=== PATIENT | female | born 1970 | race Caucasian/White ===

== ENCOUNTER 2019-10-14 10:06 | Emergency (ER) | payer BC, SELFPAY ==
[2019-10-14 10:17] VITALS: BP 118/64; PULSE 97; RESP 16; TEMP 36.7; O2SAT 99
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
== END 2019-10-14 10:47 | disposition home or self-care (01) ==
PROVIDERS: Emergency Provider Nurse Practitioner Family; PCP Family Medicine
DX: S51.851A Open bite of right forearm, initial encounter (principal); W54.0XXA Bitten by dog, initial encounter; E78.00 Pure hypercholesterolemia, unspecified; I10 Essential (primary) hypertension; K21.9 Gastro-esophageal reflux disease without esophagitis; E11.40 Type 2 diabetes mellitus with diabetic neuropathy, unspecified; E03.9 Hypothyroidism, unspecified; F31.9 Bipolar disorder, unspecified
CPT/HCPCS: 99213; G0463

== ENCOUNTER 2019-12-13 10:56 | Emergency (ER) | payer BC, SELFPAY ==
[2019-12-13 11:01] VITALS: BP 138/71; PULSE 109; RESP 18; TEMP 36.8; O2SAT 100
--- NOTE | 2019-12-13 11:17 | ED.DENTAL ---
HPI - Dental/Oral General Chief complaint: Dental/Oral Stated complaint: bottom lip swollen/tooth pain Time Seen by Provider: 12/13/19 11:17 Source: patient Mode of arrival: ambulatory Limitations: no limitations History of Present Illness HPI Narrative: Joanie Barrett is a 49 yo female with a PMH of high cholesterol diabetes, HTN, bipolar disorder, GERD, who comes to express care with chronic lower right molar and pain. Tooth has been fractured for a while but the pain started yesterday evening in the lower right molar. Has taken Percocet for pain. Related Data Home Medications Medication Instructions Recorded Confirmed amlodipine 5 mg PO BID 10/14/19 12/13/19 atorvastatin 40 mg PO DAILY 10/14/19 12/13/19 gabapentin 300 mg PO TID 10/14/19 12/13/19 glipizide 10 mg PO BID 10/14/19 12/13/19 lamotrigine 150 mg PO BID 10/14/19 12/13/19 levothyroxine 88 mcg PO DAILY 10/14/19 12/13/19 lisinopril 40 mg PO DAILY 10/14/19 10/14/19 omeprazole 40 mg PO DAILY 10/14/19 10/14/19 oxycodone-acetaminophen 1 tablet PO DAILY PRN 10/14/19 10/14/19 tizanidine 4 mg PO BID 10/14/19 10/14/19 venlafaxine 225 mg PO DAILY 10/14/19 10/14/19 Allergies Allergy/AdvReac Type Severity Reaction Status Date / Time clonazepam [From Klonopin] Allergy Anxiety Verified 12/13/19 11:18 prednisone Allergy Anxiety Verified 12/13/19 11:18 Penicillins AdvReac Itching Verified 12/13/19 11:18 Review of Systems Review of Systems: Narrative: CONSTITUTIONAL: Denies fever, chills, sweats. EYES: Denies visual changes, redness, discharge. ENT: Denies rhinorrhea, congestion, sore throat, otalgia. Right lower molar fractured with swelling of the jaw CARDIOVASCULAR: Denies chest pain, palpitations, edema. RESPIRATORY: Denies dyspnea, wheezing, cough GASTROINTESTINAL: Denies abdominal pain, nausea, vomiting, diarrhea. GENITOURINARY: Denies dysuria, hematuria, abnormal discharge SKIN: Denies rash or itching. NEUROLOGIC: Denies numbness, or focal weakness. PSYCHIATRIC: Denies anxiety or depression. [facility] Past Medical History Medical History Diabetes GERD (gastroesophageal reflux disease) High cholesterol HTN (hypertension) Family History Family History Other Diabetes mellitus Social History Social History Smoking status: Former smoker Comments At time of signature, I agree with nursing past medical, surgical, social and family history. There is no relevant family history pertinent to the presenting complaint. Exam Narrative: Exam Narrative: GENERAL: This is a well-nourished, well-developed patient, i with moderate right-sided tenderness HEAD: normocephalic, atraumatic. EYES:Sclera clear/white. Vision is grossly intact. EARS: External ears normal, NOSE: External nose normal without nasal discharge, nares without redness, no rhinorrhea. THROAT: Mucous membranes moist, posterior pharynx mild erythema, poor dentition, multiple fractured teeth, right lower molar fracture and swelling of gum NECK: Neck supple, non-tender CARDIOVASCULAR: Regular rate and rhythm without murmurs, gallops, or rubs. RESPIRATORY: Clear to auscultation. Breath sounds equal bilaterally. No wheezes, rales, or rhonchi. GASTROINTESTINAL: Abdomen soft, SKIN: warm, intact with no suspicious lesions or rash, good texture and turgor. NEURO: awake, alert, and oriented to person, place and time. There were no obvious focal neurologic abnormalities. Steady gait EXTREMITIES: Normal range of motion. BACK: Nontender without deformity Course Course Emergency Course: Dental pain right lower jaw, broken l right tooth Patient currently on Percocet for other medical problems. Started on penicillin lidocaine, and recommended use of ibuprofen-care with ibuprofen due to having hypertension Follow-up with a dentist they recommen
== END 2019-12-13 11:50 | disposition home or self-care (01) ==
PROVIDERS: Emergency Provider Nurse Practitioner; PCP Family Medicine
DX: K04.7 Periapical abscess without sinus (principal); Z87.891 Personal history of nicotine dependence; E11.9 Type 2 diabetes mellitus without complications; K21.9 Gastro-esophageal reflux disease without esophagitis; E78.00 Pure hypercholesterolemia, unspecified; I10 Essential (primary) hypertension; F31.9 Bipolar disorder, unspecified
CPT/HCPCS: 99213; G0463

== ENCOUNTER 2020-08-27 11:24 | Emergency (ER) | payer OTHER, SELFPAY ==
[2020-08-27 11:30] VITALS: BP 130/68; PULSE 104; RESP 18; TEMP 36.1; O2SAT 100
[2020-08-27 11:45] VITALS: BP 130/68; PULSE 104; RESP 18; TEMP 36.1; O2SAT 100
--- NOTE | 2020-08-27 11:45 | ED.FEMALEGU ---
HPI - Female Genitourinary General Chief complaint: Urogenital-Female Stated complaint: Possible UTI Time Seen by Provider: 08/27/20 11:40 Source: patient, RN notes reviewed and old records reviewed Mode of arrival: ambulatory Limitations: no limitations History of Present Illness HPI Narrative: 49 year old female who presents to [facility] care with complaints of 3 day history of urinary tract symptoms with pain and burning with urination, frequency of urination and urgency Patient voices history of UTI's in the past, has been taking AZO for her symptoms. She reports no increase in her back pain, does have history of chronic back pain. Patient does admit to some suprapubic tenderness, patient states no known fevers, chills or sweats, denies any nausea or vomiting. Patient denies any vaginal discharge or perineal itching. Patient is diabetic and states that it is not in as good control as was previously, she does have 3+ glucose in her urine. MD elicited complaint: dysuria and other (burning, frequency and urgency) Pertinent past history: recurrent UTIs Urinary symptoms: Dysuria, Urgency and Frequency Related Data Home Medications Medication Instructions Recorded Confirmed amlodipine 5 mg PO BID 10/14/19 08/27/20 atorvastatin 40 mg PO DAILY 10/14/19 08/27/20 gabapentin 300 mg PO TID 10/14/19 08/27/20 glipizide 10 mg PO BID 10/14/19 08/27/20 lamotrigine 150 mg PO BID 10/14/19 08/27/20 levothyroxine 100 mcg PO DAILY 10/14/19 08/27/20 lisinopril 40 mg PO DAILY 10/14/19 08/27/20 omeprazole 40 mg PO DAILY 10/14/19 08/27/20 oxycodone-acetaminophen 1 tablet PO DAILY PRN 10/14/19 08/27/20 tizanidine 4 mg PO BID 10/14/19 08/27/20 venlafaxine 225 mg PO DAILY 10/14/19 08/27/20 insulin glargine [Lantus Solostar 30 unit SUBCUT QAM 08/27/20 08/27/20 U-100 Insulin] insulin lispro [Humalog Pen] 5 unit SUBCUT QAM 08/27/20 08/27/20 Allergies Allergy/AdvReac Type Severity Reaction Status Date / Time clonazepam [From onopin] Allergy Anxiety Verified 08/27/20 11:41 prednisone Allergy Anxiety Verified 08/27/20 11:41 Penicillins AdvReac Itching Verified 08/27/20 11:41 Review of Systems Review of Systems: Narrative: CONSTITUTIONAL: Denies fever, chills, or sweats. EYES: Denies visual changes, redness, or discharge. ENT: Denies rhinorrhea, congestion, sore throat, or otalgia. CARDIOVASCULAR: Denies chest pain, palpitations, or edema. RESPIRATORY: Denies cough or dyspnea. GASTROINTESTINAL: Denies abdominal pain, nausea, vomiting, or diarrhea. GENITOURINARY: Positive dysuria or hematuria. SKIN: Denies rash or itching. MUSCULOSKELETAL: Positive chronic back pain, joint pain, or myalgia. NEUROLOGIC: Denies headache, numbness, or weakness. PSYCHIATRIC: Denies anxiety or depression. All systems reviewed & are unremarkable except as noted in HPI and below PMFSH Past Medical History Medical History (Updated 08/27/20 @ 18:47 by Nesha Dent NP) Bipolar 1 disorder Diabetes GERD (gastroesophageal reflux disease) High cholesterol HTN (hypertension) Pancreatitis Surgical History Surgical History (Updated 08/27/20 @ 18:46 by Nesha Dent NP) H/O Spinal surgery X2 History of cholecystectomy Family History Family History (Updated 08/27/20 @ 18:49 by Nesha Dent NP) Other Bipolar 1 disorder Diabetes mellitus Hypertension Social History Social History (Updated 08/27/20 @ 12:09 by Nesha Dent NP) Smoking status: Former smoker Tobacco type: cigarettes Additional smoking assessment comments: quit 3-4 years ago 2016 Alcohol intake: current Alcohol use details: rare social Substance use type: marijuana and painkillers Last use: on daily pain medication for chronic back and has medical marijuana card Living arrangements: with family Gender identity (if verbalized by the patient): Female Comments At time of signature, agree with nursing past medical, surgical, social and family history. There
== END 2020-08-27 12:16 | disposition home or self-care (01) ==
PROVIDERS: Emergency Provider Registered Nurse; PCP Family Medicine
DX: N39.0 Urinary tract infection, site not specified (principal); Z87.891 Personal history of nicotine dependence; E11.9 Type 2 diabetes mellitus without complications; K21.9 Gastro-esophageal reflux disease without esophagitis; E78.00 Pure hypercholesterolemia, unspecified; F31.9 Bipolar disorder, unspecified
CPT/HCPCS: 81003; 87077; 87086; 87088; 87186; 99213; G0463

== ENCOUNTER 2021-06-30 16:21 | Emergency (ER) | payer OTHER, SELFPAY ==
--- NOTE | 2021-06-30 16:26 | ED.FEMALEGU ---
HPI - Female Genitourinary General Chief complaint: Urogenital-Female Stated complaint: Urinary Problem Time Seen by Provider: 06/30/21 16:26 Source: patient and RN notes reviewed History of Present Illness HPI Narrative: Patient is a 50-year-old female who presents the urgent care with complaints of a possible UTI. Patient states that 2 days ago she started having suprapubic pressure/cramping, decreased urinary output and dysuria. Patient denies of any fever, nausea or vomiting. Patient has been taking Azo since this morning. No other acute complaints. No acute distress noted. Patient aware of the plan of care. Some parts of this dictation were generated by voice recognition software and may contain typographical and/or grammatical inaccuracies. Related Data Home Medications Medication Instructions Recorded Confirmed amlodipine 5 mg PO BID 10/14/19 06/30/21 atorvastatin 40 mg PO DAILY 10/14/19 06/30/21 gabapentin 300 mg PO TID 10/14/19 06/30/21 lamotrigine 150 mg PO BID 10/14/19 06/30/21 levothyroxine 100 mcg PO DAILY 10/14/19 06/30/21 lisinopril 40 mg PO DAILY 10/14/19 06/30/21 omeprazole 40 mg PO DAILY 10/14/19 06/30/21 oxycodone-acetaminophen 1 tablet PO DAILY PRN 10/14/19 06/30/21 tizanidine 4 mg PO BID 10/14/19 06/30/21 venlafaxine 225 mg PO DAILY 10/14/19 06/30/21 insulin glargine [Lantus Solostar 30 unit SUBCUT [facility] 08/27/20 06/30/21 U-100 Insulin] pioglitazone 45 mg PO DAILY 06/30/21 06/30/21 Allergies Allergy/AdvReac Type Severity Reaction Status Date / Time clonazepam [From Klonopin] Allergy Anxiety Verified 06/30/21 16:33 prednisone Allergy Anxiety Verified 06/30/21 16:33 Penicillins AdvReac Itching Verified 06/30/21 16:33 Review of Systems Review of Systems: CONSTITUTIONAL: Denies fever, chills, or sweats. EYES: Denies visual changes, redness, or discharge. ENT: Denies rhinorrhea, congestion, sore throat, or otalgia. CARDIOVASCULAR: Denies chest pain, palpitations, or edema. RESPIRATORY: Denies cough or dyspnea. GASTROINTESTINAL: Denies abdominal pain, nausea, vomiting, or diarrhea. GENITOURINARY: Reports of dysuria, frequency, dysuria and decreased urinary output SKIN: Denies rash or itching. MUSCULOSKELETAL: Denies back pain, joint pain, or myalgia. NEUROLOGIC: Denies headache, numbness, or weakness. All other systems reviewed are negative, except as documented in HPI. [facility] Past Medical History Medical History (Updated 06/30/21 @ 16:46 by SHON Bonds) Bipolar 1 disorder Diabetes GERD (gastroesophageal reflux disease) High cholesterol HTN (hypertension) Pancreatitis Surgical History Surgical History (Updated 08/27/20 @ 18:46 by Nesha Dent NP) H/O Spinal surgery X2 History of cholecystectomy Family History Family History (Updated 08/27/20 @ 18:49 by Nesha Dent NP) Other Bipolar 1 disorder Diabetes mellitus Hypertension Social History Social History (Updated 08/27/20 @ 12:09 by Nesha Dent NP) Smoking status: Former smoker Tobacco type: cigarettes Additional smoking assessment comments: quit 3-4 years ago 2016 Alcohol intake: current Alcohol use details: rare social Substance use type: marijuana and painkillers Last use: on daily pain medication for chronic back and has medical marijuana card Gender identity (if verbalized by the patient): Female Comments At the time of my signature, I reviewed and agree with the nursing past medical, surgical, social, and family history. There is no relevant family history pertinent to the patient complaint. Exam Narrative: GENERAL: This is a well-nourished, well-developed patient, in no apparent distress. HEAD: normocephalic, atraumatic. EYES: PERRL. Sclera clear/white. Vision is grossly intact. EARS: External ears normal NOSE: External nose normal with no obvious nasal discharge, nares without redness, no rhinorrhea. THROAT: Mucous membranes moist NECK: Neck supple CARDIO
[2021-06-30 16:29] VITALS: BP 148/80; PULSE 102; RESP 16; TEMP 36.7; O2SAT 97
== END 2021-06-30 16:50 | disposition home or self-care (01) ==
PROVIDERS: Emergency Provider Nurse Practitioner Family
DX: N39.0 Urinary tract infection, site not specified (principal); Z87.891 Personal history of nicotine dependence; F12.90 Cannabis use, unspecified, uncomplicated; Z79.891 Long term (current) use of opiate analgesic; E11.9 Type 2 diabetes mellitus without complications; K21.9 Gastro-esophageal reflux disease without esophagitis; E78.00 Pure hypercholesterolemia, unspecified; I10 Essential (primary) hypertension; F31.9 Bipolar disorder, unspecified
CPT/HCPCS: 81003; 87077; 87086; 87186; 99213; G0463

== ENCOUNTER 2024-11-10 12:57 | Emergency (ER) | payer OTHER, SELFPAY ==
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
[2024-11-10 13:12] VITALS: BP 139/66; PULSE 104; RESP 18; TEMP 36.8; O2SAT 98
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
--- OUTSIDE RECORDS SUMMARY | 2024-11-10 15:35 | XMS_ITS | Encounter Summary ---
Author Organization [facility] Address [address] [facility] [place] [address] Care Team Providers Care Assistant To The Dean Name Role Phone Kobi Lake DO Unavailable [phone] Darren Ledesma MD Primary Care Provider [phone] Encounter Details Date Type Department Care Team (Late st Contact Info) Description 10/31/2014 [facility] Outpatient Visit [facility] Orthopedics - Radiology [address] [place] [address] Kobi Lake, DO [address] [address] Social History Tobacco Use Types Packs/Day Years Used Date Smoking Tobacco: Every Day Cigarettes 1 25 Alcohol Use Standard Drinks/Week Comments Yes 0 (1 standard drink = 0.6 oz pur e alcohol) Comments No Sex and Gender Information Value Date Recorded Sex Assigned at Female 08/11/2023 3:56 PM CDT Legal Sex Female 8:45 AM CDT Gender Identity Not on file Sexual Orientation Not on file documented as of this encounter Functional Status * Is person deaf or have serious hearing difficulty? Answer Date of Assessment Author No 10/20/2013 1:00 AM Robles Ledezma RN * Is person blind or have serious difficulty seeing? Answer Date of Assessment Author No 10/20/2013 1:00 AM Robles Ledezma RN * Does person have serious difficulty walking/climbing stairs? Answer Date of Assessment Author No 10/20/2013 1:00 AM CDT Robles Figueroa RN * Does person have difficulty dressing/bathing? Answer Date of Assessment Author No 10/20/2013 1:00 AM Robles Ledezma RN * Does person have difficulty doing errands alone? Answer Date of Assessment Author No 10/20/2013 1:00 AM Robles Ledezma RN documented as of this encounter Mental Status * Does person have difficulty concentrating/remembering/making decisions? Answer Entry Date Author No 10/20/2013 1:00 AM Robles Ledezma RN documented in this encounter Plan of Treatment Not on file documented as of this encounter Visit Diagnoses Not on filedocumented in this encounter Additional Health Concerns Infection Onset Date Last Indicated Resolved Time MRSA Comment:2 negative screens 04/23/18 and 05/10/18-isolation removed 2013 12/25/2017 05/12/2018 8:10 AM CDT documented as of this encounter Care Teams Assistant To The Dean Relationship Specialty Start Date End Date Darren Ledesma MD PCP - General Family Medicine 10/31/14 Kobi Lake DO Orthopedic Surgery 02/17/14 documented as of this encounter
--- OUTSIDE RECORDS SUMMARY | 2024-11-10 15:35 | XMS_ITS | Encounter Summary ---
Author Organization [facility] Address [address] [facility] [place] [address] Care Team Providers Care Production Pattern Maker Name Role Phone Kobi Lake DO Unavailable [phone] Darren Ledesma MD Primary Care Provider [phone] Encounter Details Date Type Department Care Team (Late st Contact Info) Description 11/26/2017 [facility] Outpatient Visit [facility] Orthopedics - Radiology [address] [place] [address] [place] [address] Document, Scanned Social History Tobacco Use Types Packs/Day Years Used Date Smoking Tobacco: Former Cigarettes 1 25 0 05/16/2017 - 05/17/2017 Alcohol Use Standard Drinks/Week Comments Yes 0 [...] difficulty? Answer Date of Assessment Author No 11/13/2017 9:56 AM Olivia Grier APRN-CNP * Is person blind or have serious difficulty seeing? Answer Date of Assessment Author No 11/13/2017 9:56 AM Olivia Grier APRN-CNP * Does person have serious difficulty walking/climbing stairs? Answer Date of Assessment Author No 11/13/2017 9:56 AM Olivia Grier APRN-CNP * Does person have difficulty dressing/bathing? Answer Date of Assessment Author No 11/13/2017 9:56 AM CDT Olivia Gardiner APRN-JAXON * Does person have difficulty doing errands alone? Answer Date of Assessment Author No 11/13/2017 9:56 AM CDT Olivia Gardiner APRN-JAXON documented as of this encounter Mental Status * Does person have difficulty concentrating/remembering/making decisions? Answer Entry Date Author No 11/13/2017 9:56 AM CDT Olivia Gardiner APRN-JAXON documented in this encounter Plan of Treatment Not on file documented as of this encounter Visit Diagnoses Not on filedocumented in this encounter Additional Health Concerns Infection Onset Date Last Indicated Resolved Time MRSA Comment:2 negative screens 04/23/18 and 05/10/18-isolation removed 2013 12/25/2017 05/12/2018 8:10 AM CDT documented as of this encounter Care Teams Production Pattern Maker Relationship Specialty Start Date End Date Darren Ledesma MD PCP - General Family Medicine 10/31/14 Kobi Lake DO Orthopedic Surgery 02/17/14 documented as of this encounter
--- OUTSIDE RECORDS SUMMARY | 2024-11-10 15:35 | XMS_ITS | Encounter Summary ---
Author Organization [facility] Address [address] [place] [address] Care Team Providers Care Bag Bailer Name Role Phone Kobi Lake DO Unavailable [phone] Darren Ledesma MD Primary Care Provider [phone] Encounter Details Date Type Department Care Team (Late st Contact Info) Description 12/25/2017 [facility] Outpatient Visit [facility] Orthopedics - Radiology [address] [place] [address] Kobi Lake, DO [address] [address] Social History Tobacco Use Types [...] Author No 11/13/2017 9:56 AM CDT Olivia Gardiner, STARCHMAKER-AGENT SPA DESK * Does person have difficulty dressing/bathing? Answer Date of Assessment Author No 11/13/2017 9:56 AM CDT Olivia Gardiner, STARCHMAKER-AGENT SPA DESK * Does person have difficulty doing errands alone? Answer Date of Assessment Author No 11/13/2017 9:56 AM CDT Olivia Gardiner, STARCHMAKER-AGENT SPA DESK documented as of this encounter Mental Status * Does person have difficulty concentrating/remembering/making decisions? Answer Entry Date Author No 11/13/2017 9:56 AM CDT Olivia Gardiner, STARCHMAKER-AGENT SPA DESK documented in this encounter Plan of Treatment Not on file documented as of this encounter Visit Diagnoses Not on filedocumented in this encounter Additional Health Concerns Infection Onset Date Last Indicated Resolved Time MRSA Comment:2 negative screens 04/23/18 and 05/10/18-isolation removed 2013 12/25/2017 05/12/2018 8:10 AM CDT documented as of this encounter Care Teams Bag Bailer Relationship Specialty Start Date End Date Darren Ledesma MD PCP - General Family Medicine 10/31/14 Kobi Lake DO Orthopedic Surgery 02/17/14 documented as of this encounter
--- OUTSIDE RECORDS SUMMARY | 2024-11-10 15:35 | XMS_ITS | Encounter Summary ---
Author Organization [facility] Address [address] [facility] [place] [address] Care Team Providers Care Train Reservation Clerk Name Role Phone Kobi Lake DO Unavailable [phone] Darren Ledesma MD Primary Care Provider [phone] Encounter Details Date Type Department Care Team (Late st Contact Info) Description 11/26/2017 [facility] Outpatient Visit [facility] Orthopedics - Radiology [address] [place] [address] [place] [address] Document, Scanned Social History Tobacco Use Types [...] documented as of this encounter Care Teams Train Reservation Clerk Relationship Specialty Start Date End Date Darren Ledesma MD PCP - General Family Medicine 10/31/14 Kobi Lake DO Orthopedic Surgery 02/17/14 documented as of this encounter
--- OUTSIDE RECORDS SUMMARY | 2024-11-10 15:35 | XMS_ITS | Encounter Summary ---
Author Organization [facility] Address [address] [facility] [place] [address] Care Team Providers Care Lead Warehouse Associate Name Role Phone Kobi Lake DO Unavailable [phone] Darren Ledesma MD Primary Care Provider [phone] Encounter Details Date Type Department Care Team (Late st Contact Info) Description 04/23/2018 [facility] Outpatient Visit [facility] Orthopedics - Radiology [address] [place] [address] [place] [address] Document, Scanned Social History Tobacco Use Types Packs/Day Years Used Date Smoking Tobacco: Former Cigarettes 1 25 0 05/16/2017 - 05/17/2017 Smokeless Tobacco: Former Alcohol Use Standard Drinks/Week Comments Yes 0 (1 standard drink = 0.6 oz pur e alcohol) rare Comments No Sex and Gender Information Value Date Recorded Sex Assigned at Female 08/11/2023 3:56 PM CDT Legal Sex Female 8:45 AM CDT Gender Identity Not on file Sexual Orientation Not on file documented as of this encounter Functional Status * Is person deaf or have serious hearing difficulty? Answer Date of Assessment Author No 01/11/2018 9:13 PM Nesha Scott RN * Is person blind or have serious difficulty seeing? Answer Date of Assessment Author No 01/11/2018 9:13 PM Nesha Scott RN * Does person have serious difficulty walking/climbing stairs? Answer Date of Assessment Author Yes 01/11/2018 9:13 PM Nesha Scott RN * Does person have difficulty dressing/bathing? Answer Date of Assessment Author No 01/11/2018 9:13 PM Nesha Scott RN * Does person have difficulty doing errands alone? Answer Date of Assessment Author Yes 01/11/2018 9:13 PM Nesha Scott RN documented as of this encounter Mental Status * Does person have difficulty concentrating/remembering/making decisions? Answer Entry Date Author No 01/11/2018 9:13 PM Nesha Scott RN documented in this encounter Plan of Treatment Not on file documented as of this encounter Visit Diagnoses Not on filedocumented in this encounter Additional Health Concerns Infection Onset Date Last Indicated Resolved Time MRSA Comment:2 negative screens 04/23/18 and 05/10/18-isolation removed 2013 12/25/2017 05/12/2018 8:10 AM CDT documented as of this encounter Care Teams Lead Warehouse Associate Relationship Specialty Start Date End Date Darren Ledesma MD PCP - General Family Medicine 10/31/14 Kobi Lake DO Orthopedic Surgery 02/17/14 documented as of this encounter
--- OUTSIDE RECORDS SUMMARY | 2024-11-10 15:35 | XMS_ITS | Clinical Summary ---
Author Organization [facility] Address [address] [place] [address] Phone Care Team Providers Care Combat Control Name Role Phone Darren Ledesma MD Primary Care Provider [phone] Allergies Active Allergy Reactions Criticality Noted Date Comments Penicillins Itching Low 04/29/2015 Prednisone Itching Low 04/29/2015 Medications oxyCODONE-acetam inophen (PERCOCET) 10-325 mg Tablet Take 1 Tablet by mouth every 4 hours as needed for Pain, Severe. Active venlafaxine (EFFEXOR) 75 mg tablet Take 75 mg by mouth 3 times daily. Active lisinopril (PRINIVIL) 40 mg tablet Take 40 mg by mouth daily. Active lamoTRIgine (LAMICTAL) 200 mg tablet Take 200 mg by mouth daily. Active glipiZIDE (GLUCOTROL) 5 mg tablet Take 5 mg by mouth 2 times daily with meals. Active cholecalciferol, Vitamin D3, (VITAMIN D3) 1,000 unit Capsule Take 1,000 Units by mouth daily. Active pantoprazole (PROTONIX) 40 mg Tablet, Delayed Release (E.C.) Take 40 mg by mouth 2 times daily. Active amLODIPine (NORVASC) 5 mg tablet Take 5 mg by mouth 2 times daily. Active levothyroxine 88 mcg tablet Take 88 mcg by mouth daily label designer. Active tiZANidine (ZANAFLEX) 4 mg Capsule Take 4 mg by mouth. Active gabapentin (NEURONTIN) 300 mg capsule Take 300 mg by mouth 3 times daily. Active Active Problems Problem Noted Date Diagnosed Date Tobacco use 04/29/2015 Comments Yes Family History Medical History Relation Name Comments Breast Cancer Neg Hx Colon Cancer Neg Hx Ovarian Cancer Neg Hx Social History Tobacco Use Types Packs/Day Years Used Date Smoking Tobacco: Former Cigarettes Smokeless Tobacco: Never Alcohol Use Standard Drinks/Week Comments Yes 0 (1 standard drink = 0.6 oz pur e alcohol) monthly Comments Yes Sex and Gender Information Value Date Recorded Sex Assigned at Not on file Legal Sex Female 3:20 AM HEAD OF MOBILE Gender Identity Not on file Sexual Orientation Not on file Last Filed Vital Signs Vital Sign Reading Time Taken Comments Blood Pressure 153/75 07/01/2019 11:12 AM CDT Pulse 86 04/29/2015 7:00 AM CDT Temperature 37.1 C (98.8 F) 04/29/2015 3:17 AM CDT Respiratory Rate 16 04/29/2015 5:39 AM CDT Oxygen Saturation 98% 04/29/2015 7:00 AM CDT Inhaled Oxygen Concentration - - Weight 149.7 kg (330 lb) 07/01/2019 11:12 AM CDT Height 182.9 cm (6') 07/01/2019 11:12 AM CDT Body Mass Index 44.76 07/01/2019 11:12 AM CDT Plan of Treatment Health Maintenance Due Date Last Done Comments DIABETES ANNUAL FOOT EXAM 1990 DIABETES ANNUAL RETINAL EXAM 1990 DIABETES MICROALBUMIN ANNUAL SCREEN 1990 LDL CHOLESTEROL ANNUAL 1990 HEPATITIS B VACCINES (1 of 3 - 19+ 3-dose series) 03/1991 HPV/Cotest (21-29) 1993 CERVICAL CANCER SCREENING 2002 HPV/Cotest (30-65) 2002 PAP SMEAR 2002 BREAST CANCER SCREENING 2012 COLORECTAL SCREENING 2017 Colorectal Cancer Screening 2017 FIT-DNA Q 3 years 2017 FIT/FOBT Q 1 year 2017 Flex Sig/CT Colonography Q 5 years 2017 DIABETES HBA1C Q 6 MONTHS 12/15/2018 06/15/2018 ZOSTER VACCINE (1 of 2) 2022 INFLUENZA VACCINE (#1) 2024 12/17/2015 DTAP/TDAP/TD VACCINES (2 - Td or Tdap) 12/30/2027 RSV VACCINE (60+ or ) (1 - 1-dose 75+ series) 10/19/2047 Insurance BLUE ACCESS CHOICE Care Teams Combat Control Relationship Specialty Start Date End Date Darren Ledesma MD PCP - General Family Practice 04/29/15
--- OUTSIDE RECORDS SUMMARY | 2024-11-10 15:35 | XMS_ITS | Clinical Summary ---
Author Organization [facility] Address [address] [place] [address] Care Team Providers Care Sub Master Name Role Phone Darren Ledesma MD Primary Care Provider [phone] Allergies Active Allergy Reactions Criticality Noted Date Comments Clonazepam Itching,Other (See comments) High 10/10/2013 Makes her suicidal Metformin Other (See comments) Medium 11/09/2018 Causes ulcers and diarrhea Causes ulcers and diarrhea Penicillins Itching Medium 08/31/2013 Prednisone Other (See comments) Reaction: OTHER, Medications amLODIPine (NORVASC) 10 mg tablet Take 0.5 tablets (5 mg total) by mouth 2 (two) times a day 0 Active omeprazole (PriLOSEC) 40 mg capsule Take 1 capsule (40 mg total) by mouth daily 8 Active tiZANidine (ZANAFLEX) 4 mg tablet TK 1 T PO BID 0 Active venlafaxine XR (EFFEXOR-XR) 75 mg 24 hr capsule Take 1 capsule (75 mg total) by mouth daily TAKES THREE 75MG TABS ONCE DAILY 0 Active metoclopramide (REGLAN) 10 mg tablet Take 1 tablet (10 mg total) by mouth 4 (four) times a day 1 Active lamoTRIgine (LaMICtal) 150 mg tablet Take 1 tablet (150 mg total) by mouth 2 (two) times a day Active levothyroxine (SYNTHROID) 100 mcg tablet Take 1 tablet (100 mcg total) by mouth daily 1 Active lisinopriL (PRINIVIL,ZESTR IL) 20 mg tablet Take 1 tablet (20 mg total) by mouth daily 1 Active OneTouch Verio test strips strip USE TO TEST BLOOD SUGAR TWICE DAILY 1 Active ARIPiprazole (ABILIFY) 5 mg tablet 2 Active naloxone (NARCAN) 4 mg/actuation spray,non-aeros ol Use one spray every 2-3 minutes until awake for drug overdose. Call 911. 2 Active blood-glucose meter kit One Touch Verio meter- Use daily as directed for monitoring of blood sugar for diabetes e11.65 1 kit 1 2 Active HumaLOG 100 unit/mL pen for injectionIndica tions:type 2 diabetes mellitus Inject 15 Units under the skin 3 (three) times a day before meals E1165 15 mL 5 4 Active insulin glargine (LANTUS) 100 unit/mL (3 mL) pen for injectionIndica tions:Type 2 diabetes mellitus with diabetic polyneuropathy, without long-term current use of insulin (HCC) Inject 44 Units under the skin nightly 15 mL 11 4 Active pioglitazone (ACTOS) 30 mg tabletIndicatio ns:Type 2 diabetes mellitus with diabetic polyneuropathy, without long-term current use of insulin (HCC) TAKE 1 TABLET(30 MG) BY MOUTH DAILY 30 tablet 11 4 Active prazosin (MINIPRESS) 2 mg capsule TAKE 1 CAPSULE BY MOUTH EVERY DAY AT BEDTIME 4 Active pen needle, diabetic (BD Ultra-Fine Micro Pen Needle) 32 gauge x 1/4 needle Use to deliver insulin 3 times/day e11.65 100 each 5 4 Active insulin pump cart,auto,BT,G6 /7 (Omnipod 5 G6-G7 Pods, Gen 5,) cartridge Inject 1 Device under the skin every 3 (three) days E11.65 30 each 4 4 Active blood-glucose meter,continuou s (Dexcom G7 [employer]) misc 1 Device continuously To continuously monitor blood sugar e10.65 1 each 4 Active Dexcom G7 Sensor device 1 Device continuously With the omnipod OP 5. Change every 10 days. E11.65 10 each 3 4 Active insulin lispro (HumaLOG) 100 unit/mL vial for injection Infuse insulin via omnipod OP5. Total daily dose- 200 units. E11.65 180 mL 4 4 Active atorvastatin (LIPITOR) 80 mg tablet TAKE 1 TABLET(80 MG) BY MOUTH EVERY NIGHT 90 tablet 3 5 Active Active Problems Problem Noted Date Diagnosed Date Mixed diabetic hyperlipidemi a associated with type 2 diabetes mellitus 12/08/2023 Assessment & Plan (12/08/2023 2:07 PM CDT): This is a chronic condition which is Not at goal . Goal is LDL less than 70 Continue atorvastatin Encouraged to eat healthy, include fresh fruits and vegetables daily and avoid eating fried foods more than once per week. Hypertension associated with type 2 diabetes nena litus 12/08/2023 Assessment & Plan (12/08/2023 2:08 PM CDT): This is a chronic condition which is at goal. Goal is less than 140/90 Continue amlodipine, lisinopril Encouraged to monitor weight and B/P at home. Class 3 severe obesity due t o excess calories with serious comorbidity and body mass index (BMI) of 40.0 to 44.9 in adult 05/12/2022 Assessment & Plan (12/08/2023 2:06 PM CDT): This is a chronic condition which continues 8 lbs. Weight loss since last office visit Encouraged healthy eating which includes a low carb diet. Avoiding processed foods, sweets and fried foods. Encouraged 30 minutes of walking at least 5 days per week Discussed that exercise can be broken down into small sessions- for example 2- 15 minutes sessions or 3- 10 minutes sessions. \ Assessment & Plan (02/03/2023 4:49 PM RESEARCH AIDE): This is a chronic condition which is improving 20 lb weight loss since last office visit Encouraged healthy eating and continued weight loss Assessment & Plan (08/21/2022 2:29 PM CDT): With chronic condition which continues Encouraged weight loss especially due to upcoming surgeries Encouraged healthy eating Assessment & Plan (05/12/2022 7:54 PM CDT): This is a chronic condition which is worsening. 32 lb weight gain since 11/07. Encouraged weight loss and exercise. [place] lubna 2 continuous glucose monitoring device 05/12/2022 Assessment & Plan (08/21/2022 2:28 PM CDT): Continuous glucose monitor (cgm) applied from 08/08/2022 to 08/21/2022 This device was placed for monitor and treatment of blood sugar. Interpretation of data- average blood sugar 191. In target range 43%. Hyperglycemia 57% no hypoglycemia noted. Assessment & Plan (05/12/2022 8:15 PM CDT): Continuous glucose monitor (cgm) applied from 04/29/2022 to 05/12/2022 This device was placed for monitor and treatment of blood sugar. Interpretation of data- Average blood sugar-211. In target-28% of the time. Without hypoglycemia. Hyperglycemia- 82% of the time. Type 2 diabetes mellitus wit h diabetic polyneuropathy, without long-term current use of insulin 12/29/2019 Assessment & Plan (12/08/2023 2:05 PM CDT): This is a chronic condition which is worsening, elevated, not at goal . Goal is less than 7%. Personally reviewed most recent A1c - Lab Results Component Value Date HGBA1C 11.8 12/08/2023 Personally reviewed POC blood sugar- Elevated, worsening, not at goal of 80-180 Lab Results Component Value Date POCGLU 276 12/08/2023 Medication-continue Lantus 36 units daily, humalog 12 units prior to meals, continue pioglitzone 30 mg daily. Continue levothyroxine 100 mcg daily in early a.m. 30 minutes prior to food. Jardiance- stopped due to UTI/yeast. Has hx of pancreatitis no glp1. Previously has taken metformin-, did not tolerate due to diarrhea, glyburide and glipizide Monitor blood sugar continuously with freestyle Lubna cgm. Encouraged annual eye exam. Monofilament foot exam completed. 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 Goal is <30 Continue amlodipine, lisinopril Assessment & Plan (02/03/2023 4:49 PM RESEARCH AIDE): This is a chronic condition which is out of control worsening not at goal of less than 7%. Personally reviewed most recent A1c - Lab Results Component Value Date HGBA1C 10.8 02/03/2023 Personally reviewed POC blood sugar- not at goal 80-180 Lab Results Component Value Date POCGLU 377 02/03/2023 Medication- continue Lantus 36 units daily, humalog 12 units prior to meals, continue pioglitzone 30 mg daily. Continue levothyroxine 100 mcg daily in early a.m. 30 minutes prior to food Jardiance- stopped due to UTI/yeast. Has hx of pancreatitis no glp1 Strongly encouraged her to return taking her fast acting insulin Discussed complications related to diabetes she verbalized understanding Encouraged to call blood sugars in 2 weeks Monitor blood sugar continuously with freestyle lubna 2 sensor. 2 office samples provided Encouraged annual eye exam. Monofilament foot exam completed. loss of protective senses. Treated with Lyrica Personally reviewed CMP eGFR- 106 Kidney function- normal Urine microalbumin/creatinine ratio - at goal <30 Treated with lisinopril B/P today- at goal of <140/90. continue lisinopril Personally reviewed lipid panel. Not at Goal of less than 70. Continue atorvastatin Assessment & Plan (08/21/2022 2:27 PM CDT): This is a chronic condition which is stable but not at goal of less than 7%. Personally reviewed most recent A1c - Lab Results Component Value Date HGBA1C 7.6 08/21/2022 Personally reviewed POC blood sugar- at goal 80-180 Lab Results Component Value Date POCGLU 108 08/21/2022 Medication- continue Lantus 36 units daily, humalog 12 units prior to meals, continue pioglitzone 30 mg daily. Jardiance- stopped due to UTI/yeast. Has hx of pancreatitis no glp1. Monitor blood sugar continuously with freestyle lubna 2 sensor. Encouraged annual eye exam. Monofilament foot exam completed. loss of protective senses. Treated with Lyrica and gabapentin. Personally reviewed CMP eGFR- 96 Kidney function- normal Urine microalbumin/creatinine ratio - at goal <30 treated with lisinopril and amlodipine B/P today- at goal of <140/90. continue lisinopril and amlodipine Personally reviewed lipid panel. at Goal of less than 70. Assessment & Plan (05/12/2022 7:53 PM CDT): This is a chronic condition which is adequately controlled, not at goal of less than 7%. Personally reviewed most recent A1c - Lab Results Component Value Date HGBA1C 7.6 05/12/2022 Personally reviewed POC blood sugar- not at goal 80-180 Lab Results Component Value Date POCGLU 117 05/12/2022 Medication- decrease Pioglitazone 30mg daily. increase Lantus 36 units daily. Increase humalog 12 units prior to meals- 3times/day She has a hx of pancreatitis -not a candidate for GLP-1. Jardiance- UTI/yeast Monitor blood sugar 2x a day. Encouraged annual eye exam. last appt at [facility] Monofilament foot exam completed, loss of protective senses. Treated with Gabapentin Urine microalbumin/creatinine ratio 30-300mg/g abnormal. Continue amlodipine, lisinopril 20 mg daily, at goal of less than 30. Kidney function- normal B/P today- at goal blood pressure is <140/90, Continue amlodipine and lisinopril . Personally reviewed LDL -116 currently on atorvastatin 40 mg daily, at goal of less than 70. No history of macrovascular disease - CVA, SD. Assessment & Plan (11/06/2021 3:00 PM CDT): This is a chronic condition which is not at goal. Personally reviewed A1c today-9.6% not at goal of less than 7% She has a hx of pancreatitis -not a candidate for GLP-1. Jardiance- UTI/yeast Medication- encouraged to continue Pioglitazone 45 mg daily. increase Lantus 44 units daily. Samples of basaglar and toujeo provided. Monitor blood sugar 2x a day. Encouraged annual eye exam. last appt at [facility] Monofilament foot exam completed, loss of protective senses. Treated with Gabapentin Urine microalbumin/creatinine ratio 30-300mg/g abnormal. Continue amlodipine, lisinopril 20 mg daily, at goal of less than 30. labs In care everywhere. Kidney function- normal B/P today- at goal. Continue amlodipine and lisinopril . Goal blood pressure is <140/90, Personally reviewed LDL -116 currently on atorvastatin 40 mg daily, at goal of less than 70. No history of macrovascular disease - CVA, SD. Assessment & Plan (06/22/2021 7:54 AM CDT): This is a chronic condition which is above goal. Personally reviewed A1c today- increased to 9.3% not at goal of less than 7% She has a hx of pancreatitis -not a candidate for GLP-1. Jardiance- UTI/yeast Medication- encouraged to continue Pioglitazone 45 mg daily. increase Lantus 40 units daily. Monitor blood sugar 2x a day. Encouraged annual eye exam. Appt. Made at [facility] Monofilament foot exam completed, loss of protective senses. Treated with Gabapentin Urine microalbumin/creatinine ratio - <130-300mg/g abnoraml. currently onamlodipine, lisinopril 20 mg daily, at goal of less than 30. Bun9, creat-0.62 egfr->60, In care everywhere. Kidney function- normal B/P today- 120/70 , currently on amlodipine and lisinopril 20 mg daily Goal blood pressure is <140/90, long-term blood pressure goal is to be as close to 120/80 as possible. Personally reviewed LDL -116 currently on atorvastatin 40 mg daily, at goal of less than 70. No history of macrovascular disease - CVA, SD. Encouraged to obtain ordered labs. S Assessment & Plan (03/18/2021 4:54 PM RESEARCH AIDE): This is a chronic condition which is above goal. Personally reviewed A1c today- 7.5% not at goal of less than 7% She has a hx of pancreatitis -not a candidate for GLP-1. Jardiance- UTI/yeast Medication- encouraged to continue Pioglitazone 45 mg daily. Lantus 36 units daily. Monitor blood sugar 2x a day. Encouraged annual eye exam. Appt. Made at [facility] Monofilament foot exam completed, loss of protective senses. Treated with Gabapentin Urine microalbumin/creatinine ratio - <15 currently onamlodipine, lisinopril 20 mg daily, at goal of less than 30. Bun-8, creat-0.5, egfr->60, In care everywhere. Kidney function- normal B/P today- 116/60 , currently on amlodipine and lisinopril 20 mg daily Goal blood pressure is <140/90, long-term blood pressure goal is to be as close to 120/80 as possible. Personally reviewed LDL -56 currently on atorvastatin 40 mg daily, at goal of less than 70. No history of macrovascular disease - CVA, SD. Assessment & Plan (12/05/2020 4:42 PM CDT): This is a chronic condition which is above goal. Personally reviewed A1c today- 7.6% not at goal of less than 7% She has a hx of pancreatitis -not a candidate for GLP-1. Jardiance- UTI/yeast Medication- continue Pioglitazone 45 mg daily. Lantus 36 units daily. Monitor blood sugar 2x a day. Encouraged annual eye exam. Appt. Made at [facility] Monofilament foot exam completed, loss of protective senses. Treated with Gabapentin Urine microalbumin/creatinine ratio - <15 currently onamlodipine, lisinopril 20 mg daily, at goal of less than 30. Bun-8, creat-0.5, egfr->60, In care everywhere. Kidney function- normal B/P today- 102/60 , currently on amlodipine and lisinopril 20 mg daily Goal blood pressure is <140/90, long-term blood pressure goal is to be as close to 120/80 as possible. Personally reviewed LDL -56 currently on atorvastatin 40 mg daily, at goal of less than 70. No history of macrovascular disease - CVA, SD. Assessment & Plan (07/11/2020 4:40 PM CDT): This is a chronic condition which is at goal. Lantus and Novolog added - Continued hyperglycemia since starting and stopping Latuda. Personally reviewed A1c today- 7.7 goal less than 7% She has a hx of pancreatitis -not a candidate for GLP-1 Medication- Restart Pioglitazone 45 mg daily. Continue Jardiance 25 mg daily. reports yeast infections- Diflucan 150mg 1 tab and repeat in 72 hrs. Will treat x 2, after that we will consider other medication options. Monitor blood sugar 4x a day. Encouraged annual eye exam. Appt. Made at [facility] Monofilament foot exam completed, loss of protective senses. Treated with Gabapentin (04/14/20) Urine microalbumin/creatinine ratio - <15 currently on lisinopril 20 mg daily, at goal of less than 30. 5/10/06 BUN-16, creat- 0.74, GFR-96 Kidney function- normal B/P today- 120/72 , currently on lisinopril 20 mg daily Goal blood pressure is <140/90, long-term blood pressure goal is to be as close to 120/80 as possible. Personally reviewed LDL -56 (04/14/20) currently on atorvastatin 40 mg daily, at goal of less than 70. Lipid panel repeated. No history of macrovascular disease - CVA, SD. Assessment & Plan (04/11/2020 5:02 PM RESEARCH AIDE): This is a chronic condition which is worsening and not at goal. Personally reviewed A1c today- 7.6, increased from 6.7% goal less than 7% Personally reviewed blood sugar -173 Discussed adding GLP-1, however she has had pancreatitis and is not a candidate for this class of drugs. Medication- stop glipizide, Continue Pioglitazone 45 mg daily. Start Jardiance 25 mg daily. Denies yeast infections or bladder infections. Monitor blood sugar 1-2x a day. Encouraged annual eye exam. Appt. Made at [facility] Monofilament foot exam completed, loss of protective senses. Treated with Gabapentin Urine microalbumin/creatinine ratio - abnormal currently on lisinopril 40 mg daily Personally reviewed labs: from care everywhere-[facility] CREATININE 0.55 (L) 09/14/2019 GFRNA >60 09/14/2019 CALCIUM 9.3 09/14/2019 Kidney function- normal B/P today- 118/62 , currently on lisinopril 40 mg daily Goal blood pressure is <140/90, long-term blood pressure goal is to be as close to 120/80 as possible. Personally reviewed LDL -79 (10/2019-care everywhere), currently on atorvastatin 40 mg daily, not at goal of less than 70. Lipid panel repeated. No history of macrovascular disease - CVA, SD. Assessment & Plan (12/29/2019 2:58 PM RESEARCH AIDE): This is a chronic condition which is stable, controlled below goal. Personally reviewed A1c today- 6.7 goal less than 7% Personally reviewed blood sugar -157 Medication- Continue Glipizide 10 mg twice daily, Continue Pioglitazone 45 mg daily Monitor blood sugar 1-2x a day. Encouraged annual eye exam. Appt. Made at [facility] Monofilament foot exam completed, loss of protective senses. Treated with Gabapentin Urine microalbumin/creatinine ratio - abnormal currently on lisinopril 40 mg daily Personally reviewed labs: from care everywhere-[facility] CREATININE 0.55 (L) 09/14/2019 GFRNA >60 09/14/2019 CALCIUM 9.3 09/14/2019 SGPTALT 22 09/14/2019 Kidney function- normal B/P today- 120/60 , currently on lisinopril 40 mg daily Goal blood pressure is <140/90, long-term blood pressure goal is to be as close to 120/80 as possible. Personally reviewed LDL -79 (10/2019-careeverywhere), currently not on a statin. Goal of less than 70 No history of macrovascular disease - CVA, SD. Acquired hypothyroidism 12/29/2019 Assessment & Plan (12/08/2023 2:05 PM CDT): This is a chronic condition which is at goal of TSH between 0.3 to 4.2 mclUnits/ml Lab Results Component Value Date TSH 3.34 08/21/2022 TSH 5.50 (H) 06/23/2020 TSH 2.81 04/14/2020 Continue Levothryoxine 100 mcg po daily in am Discussed the importance of taking Levothryoxine on a empty stomach, which means one hour before eating or two hours after eating, food in the stomach will interfere with absorption of Levothyroxine, Calcium, antacids and iron supplements will interfere with the absorption of Levothyroxine, encouraged to take these at a different time of the day. Assessment & Plan (08/21/2022 2:29 PM CDT): This is a chronic condition which is not at goal of TSH between 0.3 to 4.2 mclUnits/ml Personally reviewed lab. Lab Results Component Value Date TSH 5.50 (H) 06/23/2020 TSH 2.81 04/14/2020 Continue Levothryoxine 100 mcg po daily in am Discussed the importance of taking Levothryoxine on a empty stomach, which means one hour before eating or two hours after eating. Discussed food in the stomach will interfere with absorption of Levothyroxine. Discussed Calcium, antacids and iron supplements will interfere with the absorption of Levothyroxine, encouraged to take these at a different time of the day. Repeat TSH, reflux to T4 today Assessment & Plan (05/12/2022 7:55 PM CDT): This is a chronic condition which is not at goal. Personally reviewed lab. Last TSH- 5.5 (06/23/20) Strongly Encouraged to obtain Repeat TSH, T4. Repeat labs ordered. Continue on Levothryoxine 100mcg po daily in am Please take Levothryoxine on a empty stomach. This means one hour before eating or two hours after eating. Food in the stomach will interfere with absorption of Levothyroxine. Calcium, antacids and iron supplements will interfere with the absorption of Levothyroxine. Please take these at a different time of the day. Assessment & Plan (11/06/2021 3:00 PM CDT): This is a chronic condition which is Not at goal. Personally reviewed lab. Last TSH- 5.5 (06/23/20) Strongly Encouraged to obtain Repeat TSH, T4. Continue on Levothryoxine 100mcg po daily in am Please take Levothryoxine on a empty stomach. This means one hour before eating or two hours after eating. Food in the stomach will interfere with absorption of Levothyroxine. Calcium, antacids and iron supplements will interfere with the absorption of Levothyroxine. Please take these at a different time of the day. Assessment & Plan (06/22/2021 7:55 AM CDT): This is a chronic condition which is Not at goal. Personally reviewed lab. Last TSH- 5.5 (06/23/20) Encouraged to obtain Repeat TSH, T4. Continue on Levothryoxine 100mcg po daily in am Please take Levothryoxine on a empty stomach. This means one hour before eating or two hours after eating. Food in the stomach will interfere with absorption of Levothyroxine. Calcium, antacids and iron supplements will interfere with the absorption of Levothyroxine. Please take these at a different time of the day. Assessment & Plan (03/18/2021 4:55 PM RESEARCH AIDE): This is a chronic condition which is Not at goal. Personally reviewed lab. Last TSH- 5.5 (06/23/20) Encouraged to obtain Repeat TSH, T4. Continue on Levothryoxine 100mcg po daily in am Please take Levothryoxine on a empty stomach. This means one hour before eating or two hours after eating. Food in the stomach will interfere with absorption of Levothyroxine. Calcium, antacids and iron supplements will interfere with the absorption of Levothyroxine. Please take these at a different time of the day. Assessment & Plan (12/05/2020 4:35 PM CDT): This is a chronic condition which is stable, controlled,at goal. Personally reviewed lab. Last TSH- 5.5 (06/23/20) Repeat TSH, T4. Continue on Levothryoxine 100mcg po daily in am Please take Levothryoxine on a empty stomach. This means one hour before eating or two hours after eating. Food in the stomach will interfere with absorption of Levothyroxine. Calcium, antacids and iron supplements will interfere with the absorption of Levothyroxine. Please take these at a different time of the day. Treated by Dr. Ledesma. Assessment & Plan (07/11/2020 4:37 PM CDT): This is a chronic condition which is stable, controlled,at goal. Personally reviewed lab. Last TSH- 5.5 (06/23/20) Continue on Levothryoxine 100mcg po daily in am Please take Levothryoxine on a empty stomach. This means one hour before eating or two hours after eating. Food in the stomach will interfere with absorption of Levothyroxine. Calcium, antacids and iron supplements will interfere with the absorption of Levothyroxine. Please take these at a different time of the day. Treated by Dr. Ledesma. Assessment & Plan (04/11/2020 5:05 PM RESEARCH AIDE): This is a chronic condition which is stable, controlled,at goal. Personally reviewed lab. Last TSH- 3.21 (11/05/19) Free T4-1.2 (11/05/19) Continue on Levothryoxine 88mcg po daily in am Please take Levothryoxine on a empty stomach. This means one hour before eating or two hours after eating. Food in the stomach will interfere with absorption of Levothyroxine. Calcium, antacids and iron supplements will interfere with the absorption of Levothyroxine. Please take these at a different time of the day. Repeat TSH, T4 Assessment & Plan (12/29/2019 2:58 PM RESEARCH AIDE): This is a chronic condition which is stable, controlled,at goal. Personally reviewed lab. Last TSH- 3.21 (11/05/19) Free T4-1.2 (11/05/19) Continue on Levothryoxine 88mcg po daily in am Please take Levothryoxine on a empty stomach. This means one hour before eating or two hours after eating. Food in the stomach will interfere with absorption of Levothyroxine. Calcium, antacids and iron supplements will interfere with the absorption of Levothyroxine. Please take these at a different time of the day. Repeat TSH, T4 in one year of sooner if symptoms indicate Resolved Problems Problem Noted Date Diagnosed Date Resolved Date Severe obesity 12/08/2023 12/08/2023 Body mass index 40.0-44.9, adult (CMS/HCC) 12/08/2023 12/08/2023 Morbid (severe) obesity due to excess calories 05/12/2022 05/12/2022 Surgical History Surgery Date Site/Laterality Comments LUMBAR FUSION Arthrodesis Lumbar - (Added by TW Conv) [place] LAMNOTMY INCL W/DCMPRSN N RV ROOT 1 INTRSPC LUMBR Hemilaminectomy With Disc Removal One Lumbar Interspace - (Added by TW Conv) Medical History Medical History Date Comments Personal history of other me ntal and behavioral disorders History of depression - (Add ed by TW Conv) Personal history of other en docrine, nutritional and metabolic disease History of diabetes mellitus - (Added by TW Conv) Personal history of other sp ecified conditions History of urinary incontine nce - (Added by TW Conv) Personal history of other di seases of the circulatory system History of hypertension - (A dded by TW Conv) Diabetes mellitus Hypertension Hypercholesteremia Gastric reflux Kidney stone Depression MRSA (methicillin resistant Staphylococcus aureus) Peptic ulceration History of stomach ulcers Morbid (severe) obesity due to excess calories (HCC) 05/12/2022 Family History Medical History Relation Name Comments Arthritis Other Diabetes Other Family history of diabetes mellitus - (Added by TW Conv) Heart disease Other Hypertension Other Kidney disease Other Mental illness Other Seizures Other Stroke Other Relation Name Status Comments Other Social History Tobacco Use Types Packs/Day Years Used Date Smoking Tobacco: Former Cigarettes 1.5 30 Smokeless Tobacco: Never Tobacco Cessation:Counseling Given: Not Answered Comments No Sex and Gender Information Value Date Recorded Sex Assigned at Not on file Legal Sex Female 9:14 AM RESEARCH AIDE Gender Identity Female 03/21/2020 4:18 PM RESEARCH AIDE Sexual Orientation Not on file Obstetrics History Last Filed Vital Signs Vital Sign Reading Time Taken Comments Blood Pressure 132/64 12/08/2023 1:28 PM CDT Pulse 102 06/30/2023 10:50 AM CDT Temperature 36.8 C (98.3 F) 06/24/2020 4:29 PM CDT Respiratory Rate 16 06/30/2023 10:50 AM CDT Oxygen Saturation 99% 06/30/2023 10:50 AM CDT Inhaled Oxygen Concentration - - Weight 142.9 kg (315 lb) 12/08/2023 1:28 PM CDT Height 182.9 cm (6') 12/08/2023 1:28 PM CDT Body Mass Index 42.72 12/08/2023 1:28 PM CDT Plan of Treatment Health Maintenance Due Date Last Done Comments Cervical Cancer Screening 1972 Colon Cancer Screening-Colonoscopy 1972 Depression Screening 1972 Hepatitis C Screening 1972 Hepatitis B Screening 1990 Regular Well Visit/Exam 18-64 1990 Pneumococcal vaccine <65 (1 of 2 - PCV) 10/19/1991 Breast Cancer Screening-Mammogram 12/09/2018 018, 12/09/2017 Dilated Eye Exam 02/24/2019 02/24/2018 Zoster Vaccine (1 of 2) 2022 Hemoglobin A1C 06/07/2024 12/08/2023, 04/0 04/2023, 05/20/2023, Additional history exists Covid-19 Vaccine (3 - 2024-2 6 season) 2024 05/12/2020, 04/19/2020 Influenza Vaccine (#1) 2024 , 03/07/2020, 12/17/2015, Additional history exists Albumin Creatinine Ratio, Urine 12/07/2024 12/08/2023, 08/21/2022, 04/14/2020 Foot Exam 12/07/2024 12/08/2023, 01/16, 06/21/2021, Additional history exists Lipid Panel 12/07/2024 12/08/2023, 07/0 07/2022, 06/21/2021, Additional history exists eGFR 12/07/2024 12/08/2023, 04/0 04/2023, 05/20/2023, Additional history exists DTaP/Tdap/Td Vaccine (2 - Td or Tdap) 12/30/2027 12/29/2017 Procedures Procedure Name Priority Date/Time Associated Diagnosis Comments POCT HEMOGLOBIN A1C Routine 12/08/2023 1 :30 PM CDT Type 2 diabetes mellitus with diabetic polyneuropathy, without long-term current use of insulin (HCC) EGFR Routine 12/08/2023 12:00 PM CDT Type 2 diabetes mellitus with diabetic polyneuropathy, without long-term current use of insulin (HCC) LIPID PANEL Routine 12/08/2023 12:00 PM CDT Type 2 diabetes mellitus with diabetic polyneuropathy, without long-term current use of insulin (HCC) ALBUMIN CREATININE RATIO, URINE Routine 12/08/2023 12:00 PM CDT Type 2 diabetes mellitus with diabetic polyneuropathy, without long-term current use of insulin (HCC) DIABETIC EYE EXAM Routine 02/24/2018 from Last 3 Months or Most Recently Relevant to Health Maintenance Results * (ABNORMAL) POCT hemoglobin A1c (12/08/2023 1:30 PM CDT) Hemoglobin A1C, POC 11.8 4.0 - 5.6 % Blood 12/08/2023 1:30 PM CDT Tania Pompa NP POINT OF CARE TEST ORDERABLES F inal Result * eGFR (12/08/2023 12:00 PM CDT) eGFR >90 >=60 mL/min/1. 73 m2 Comment: Interpretive Data Reference Interval Normal >/= 90 mL/min/1.73m2 Mildly decreased* 60 - 89 mL/min/1.73m2 Mildly to moderately decreased 45 - 59 mL/min/1.73m2 Moderately to severely decreased 30 - 44 mL/min/1.73m2 Severely decreased 15 - 29 mL/min/1.73m2 Kidney Failure < 15 mL/min/1.73m2 *Relative to young adult level Estimated glomerular filtration rate is determined by the 2020 CKD-EPI equation recommended by the National Kidney Foundation (A Unifying Approach to GFR Estimation: Recommendations of the NKF-ASK Task Force on Reassessing the Inclusion of Race in Diagnosing Kidney Disease, JASN 2020). The CKD-EPI equation should not be used for patients with unstable renal function and has not been validated in children and those over 70. Current interpretive data was last reviewed 2020. Blood 12/08/2023 12:0 0 PM CDT 12/08/2023 6:56 PM CDT Tania Pompa NP LAB BLOOD ORDERABLES Final Resu lt LELO [id number] Department [place] [address] * Albumin Creatinine Ratio, Urine (12/08/2023 12:00 PM CDT) Albumin Ur 51.0 mg/L Comment: Interpretive Data No reference range established. Current interpretive data was last revised 2018. Creatinine Ur 281.6 mg/dL [facility] Comment: Interpretive Data No reference range established. Current interpretive data was last revised 2018. Albumin Creatinine Ratio, Ur 18 1 - 29 mg/g [facility] Urine 12/08/2023 12:0 0 PM CDT 12/08/2023 6:49 PM CDT us Tania Pompa NP LAB URINE ORDERABLES Final Resu lt LELO DUENAS [id number] Department [place] [address] * (ABNORMAL) Lipid panel (12/08/2023 12:00 PM CDT) Cholesterol 125 30 - 199 mg/dL Comment: Interpretive Data Ages < or = 19 years Acceptable: <170 mg/dL Borderline high: 170-199 mg/dL High: >or= 200 mg/dL Ages > or = 20 years Desirable: <200 mg/dL Borderline high: 200-239 mg/dL High: >or= 240 mg/dL Literature References: 1. Expert Panel on Integrated Guidelines for Cardiovascular Health and Risk Reduction in Children and Adolescents. Pediatrics 2011;128:S213 2. NCEP Expert Panel. Circulation 2004;110:227 Current Interpretive Data was last revised on 2017. Triglycerides 126 <=149 mg/dL [facility] Comment: Interpretive Data Ages < or = 9 years Acceptable: <75 mg/dL Borderline high: 75-99 mg/dL High: >or= 100 mg/dL Ages 10 to 20 years Acceptable: <90 mg/dL Borderline high: 90-129 mg/dL High: >or= 130 mg/dL Ages > or = 20 years Desirable: <150 mg/dL Borderline high: 150-199 mg/dL High: 200-499 mg/dL Very high: >or= 499 mg/dL Literature References: 1. Expert Panel on Integrated Guidelines for Cardiovascular Health and Risk Reduction in Children and Adolescents. Pediatrics 2011;128:S213 2. NCEP Expert Panel. Circulation 2004;110:227 Current Interpretive Data was last revised on 2017. HDL 36(L) >=40 mg/dL [facility] DUENAS Comment: Interpretive Data Ages < or = 19 years Acceptable: >45 mg/dL Borderline low: 40-45 mg/dL Low: <40 mg/dL Ages > or = 20 years Desirable: >or= 60 mg/dL Low: <40 mg/dL Literature References: 1. Expert Panel on Integrated Guidelines for Cardiovascular Health and Risk Reduction in Children and Adolescents. Pediatrics 2011;128:S213 2. NCEP Expert Panel. Circulation 2004;110:227 Current Interpretive Data was last revised on 2017. LDL, calculated 66 <=129 mg/dL [facility] DUENAS Comment: Interpretive Data Ages < or = 19 years Acceptable: <110 mg/dL Borderline high: 110-129 mg/dL High: >or= 130 mg/dL Ages > or = 20 years Optimal: <100 mg/dL Near optimal: 100-129 mg/dL Borderline high: 130-159 mg/dL High: >160 mg/dL Calculated using the Tee LDL-C estimating equation. This equation was implemented on 2023. Prior to this date LDL-C was estimated using the Friedewald equation. Literature References: 1. Expert Panel on Integrated Guidelines for Cardiovascular Health and Risk Reduction in Children and Adolescents. Pediatrics 2011;128:S213 2. NCEP Expert Panel. Circulation 2004;110:227 3. Tee Joshi al. [place]ISON Cardiol. 2019June 16;5(5):540-548. doi: 10.1001/jamacardio.2020.0013 Current Interpretive Data was last revised on 2023. Non-HDL Cholesterol 89 mg/dL [facility] DUENAS Comment: Interpretive Data Ages < or = 19 years Acceptable: <120 mg/dL Borderline high: 120-144 mg/dL High: >145 mg/dL Ages > or = 20 years When triglycerides are >200 mg/dL, Non-HDL cholesterol is a secondary target of therapy with treatment goals that are 30 mg/dL greater than the LDL cholesterol target. Literature References: 1. Expert Panel on Integrated Guidelines for Cardiovascular Health and Risk Reduction in Children and Adolescents. Pediatrics 2011;128:S213 2. NCEP Expert Panel. Circulation 2004;110:227 Current Interpretive Data was last revised on 2017. Chol/HDL ratio 3 [facility] DUENAS Blood 12/08/2023 12:0 0 PM CDT 12/08/2023 6:49 PM CDT Narrative BAUTISTANER [facility] - 12/08/2023 7:45 PM CDT These lab test should be done fasting. This means do not eat or drink for at least 12 hours prior to getting your blood drawn. Tania Pompa NP LAB BLOOD ORDERABLES Final Resu lt LELO [id number] Department [place] [address] * Diabetic Eye Exam (02/24/2018) Historical Provider HEALTH MAINTENANCE Final Result from Last 3 Months or Most Recently Relevant to Health Maintenance Insurance [id number] [place] [address] HE[place] PLAN [place] [facility] HEALTH PLAN [place] Care Teams Sub Master Relationship Specialty Start Date End Date Darren Ledesma MD [address] [place] [address] PCP - General 06/12/16
--- OUTSIDE RECORDS SUMMARY | 2024-11-10 15:35 | XMS_ITS | Encounter Summary ---
Author Organization [facility] Address [address] [place] [address] Care Team Providers Care Supervisor Grower Name Role Phone Kobi Lake DO Unavailable [phone] Darren Ledesma MD Primary Care Provider [phone] Encounter Details Date Type Department Care Team (Late st Contact Info) Description 06/25/2023 [facility] Outpatient Visit [facility] Orthopedics [address] [place] [phone] Document, Scanned Social History Tobacco Use Types [...] difficulty? Answer Date of Assessment Author No 06/14/2018 2:28 PM CDT Nesha Higgins RN * Is person blind or have serious difficulty seeing? Answer Date of Assessment Author No 06/14/2018 2:28 PM CDT Nesha Higgins RN * Does person have serious difficulty walking/climbing stairs? Answer Date of Assessment Author Yes 06/14/2018 2:28 PM CDT Nesha Higgins RN * Does person have difficulty dressing/bathing? Answer Date of Assessment Author No 06/14/2018 2:28 PM EZNAIDAT Nesha Higgins RN * Does person have difficulty doing errands alone? Answer Date of Assessment Author Yes 06/14/2018 2:28 PM Nesha Mann RN documented as of this encounter Mental Status * Does person have difficulty concentrating/remembering/making decisions? Answer Entry Date Author No 06/14/2018 2:28 PM Nesha Mann RN documented in this encounter Plan of Treatment Not on file documented as of this encounter Visit Diagnoses Not on filedocumented in this encounter Care Teams Supervisor Grower Relationship Specialty Start Date End Date Darren Ledesma MD PCP - General Family Medicine 10/31/14 Kobi Lake DO Orthopedic Surgery 02/17/14 documented as of this encounter
--- OUTSIDE RECORDS SUMMARY | 2024-11-10 15:35 | XMS_ITS | Encounter Summary ---
Author Organization [facility] Address [address] [facility] [place] [address] Care Team Providers Care Furnace Puncher Name Role Phone Kobi Lake DO Unavailable [phone] Darren Ledesma MD Primary Care Provider [phone] Encounter Details Date Type Department Care Team (Late st Contact Info) Description 12/25/2017 [facility] Outpatient Visit [facility] Orthopedics - Radiology [address] [place] [address] Kobi Lake, DO [address] [address] Social History Tobacco Use Types [...] No 11/13/2017 9:56 AM CDT Olivia Gardiner, STATE GAME PROTECTOR-PARTS IDENTIFIER * Does person have difficulty dressing/bathing? Answer Date of Assessment Author No 11/13/2017 9:56 AM CDT Olivia Gardiner, STATE GAME PROTECTOR-PARTS IDENTIFIER * Does person have difficulty doing errands alone? Answer Date of Assessment Author No 11/13/2017 9:56 AM CDT Olivia Gardiner, STATE GAME PROTECTOR-PARTS IDENTIFIER documented as of this encounter Mental Status * Does person have difficulty concentrating/remembering/making decisions? Answer Entry Date Author No 11/13/2017 9:56 AM CDT Olivia Gardiner, STATE GAME PROTECTOR-PARTS IDENTIFIER documented in this encounter Plan of Treatment Not on file documented as of this encounter Visit Diagnoses Not on filedocumented in this encounter Additional Health Concerns Infection Onset Date Last Indicated Resolved Time MRSA Comment:2 negative screens 04/23/18 and 05/10/18-isolation removed 2013 12/25/2017 05/12/2018 8:10 AM CDT documented as of this encounter Care Teams Furnace Puncher Relationship Specialty Start Date End Date Darren Ledesma MD PCP - General Family Medicine 10/31/14 Kobi Lake DO Orthopedic Surgery 02/17/14 documented as of this encounter
--- OUTSIDE RECORDS SUMMARY | 2024-11-10 15:35 | XMS_ITS | Encounter Summary ---
Author Organization [facility] Address [address] [place] [address] Phone Care Team Providers Care Launch Engineer Name Role Phone Darren Ledesma MD Primary Care Provider [phone] Mala Thomas APRN, STREET SWEEPER OPERATOR Unavailable Theodore Hernandez MD Unavailable Chandan Mcdaniel MD Unavailable Reason for Visit * Reason Comments Medication Refill Encounter Details Date Type Department Care Team (Late st Contact Info) Description 01/20/2022 Refill [facility] - Family Medicine - [place] [address] [place] [phone] Darren Ledesma MD [address] [address] Medication Refill Social History Tobacco Use Types Packs/Day Years Used Date Smoking Tobacco: Former Cigarettes 1 30 1 - 12/07/2017 Smokeless Tobacco: Never Alcohol Use Standard Drinks/Week Comments Yes 0 (1 standard drink = 0.6 oz pur e alcohol) usually about 2 drinks a year PHQ-2 Answer Date Recorded Total Score - Questions 1-9 0 04/18 Education Answer Date Recorded What is the highest level of school you have completed or the highest degree you have received? GED or equivalent Sexually Active Control Partners Comments Yes Male Comments No Sex and Gender Information Value Date Recorded Sex Assigned at Female 03/04/2024 5:39 PM AUDIT REVIEWER Legal Sex Female 7:42 PM CDT Gender Identity Female 03/04/2024 5:39 PM AUDIT REVIEWER Sexual Orientation Straight 03/04/2024 5: 39 PM AUDIT REVIEWER documented as of this encounter Miscellaneous Notes * Telephone Encounter - Hina Jamse RN - 01/20/2022 3:17 PM CST Medication failed the protocol, provider to review and approve the medication order if appropriate. Requested Prescriptions Pending Prescriptions Disp Refills omeprazole (PriLOSEC) 40 MG CAPSULE DELAYED RELEASE [Pharmacy Med Name: OMEPRAZOLE 40MG CAPSULES] 90 Capsule 1 Sig: TAKE 1 CAPSULE BY MOUTH DAILY Proton Pump Inhibitors Protocol Passed - 01/20/2022 1:28 PM Passed - No positive test in the past 12 months or most recent test was negative Passed - Visit with relevant provider in past 12 months or upcoming 90 days Recent Visits Date Type Provider Dept 10/30/21 Telemedicine Darren Ledesma MD [facility] 07/22/21 Telemedicine Darren Ledesma MD [facility] 05/16/21 Office Visit Darren Ledesma MD [facility] Showing recent visits within past 365 days and meeting all other requirements Future Appointments No visits were found meeting these conditions. Showing future appointments within next 90 days and meeting all other requirements Passed - No active on record tiZANidine (ZANAFLEX) 4 MG Tablet 60 Tablet 2 Sig: Take 1 Tablet by mouth 2 times daily. Not Delegated - Muscle Relaxants Protocol Failed - 01/20/2022 1:28 PM Failed - This refill cannot be delegated Passed - Visit with relevant provider in past 12 months or upcoming 90 days Recent Visits Date Type Provider Dept 10/30/21 Telemedicine Darren Ledesma MD [facility] 07/22/21 Telemedicine MohyudDarren kelly MD [facility] 05/16/21 Office Visit Darren Ledesma MD [facility] Showing recent visits within past 365 days and meeting all other requirements Future Appointments No visits were found meeting these conditions. Showing future appointments within next 90 days and meeting all other requirements Passed - ALT less than 90 and AST less than 55 on record in past 12 months SGOT (AST) Date Value Ref Range Status 10/27/2021 37 (H) <=32 U/L Final SGPT (ALT) Date Value Ref Range Status 10/27/2021 52 (H) <=41 U/L Final T REVIEWER * Telephone Encounter - Effie Burden MA - 01/20/2022 1:27 PM AUDIT REVIEWER Pdmp 12/12/21 Tizanidine 4 mg tabs 30 day supply (60 quant) T REVIEWER documented in this encounter Plan of Treatment Upcoming Encounters Date Type Department Care Team (Late st Contact Info) Description 01/02/2025 11:30 AM AUDIT REVIEWER Office Visit [facility] - Endocrinology - [address] [place] [address] Chandan Mcdaniel MD [address] [place] [address] 01/02/2025 11:45 AM AUDIT REVIEWER Procedure Visit [facility] - Endocrinology - [address] [place] [address] 01/23/2025 4:00 PM AUDIT REVIEWER Office Visit [facility] - Family Medicine - [place] [address] [facility] [place] [address] Darren Ledesma MD [address] [place] [address] documented as of this encounter Visit Diagnoses Diagnosis Chronic pain syndrome documented in this encounter Additional Health Concerns Infection Onset Date Last Indicated Resolved Time C. difficile Rule-Out 06/03/2022 06/04/20222022 2:58 AM CDT COVID - 19 01/14/2023 01/14/2023 01/15/2023 3:13 PM AUDIT REVIEWER Assessment Noted Time PHQ-9 Depression Total Score: 0 05/17/19 22 4:00 PM CDT documented as of this encounter Care Teams Launch Engineer Relationship Specialty Start Date End Date Darren Ledesma MD [address] [facility] [address] [place] [address] PCP - General Family Medicine 12/29/14 Mala Thomas APRN, STREET SWEEPER OPERATOR [address]2 [facility] [address] [place] [address] Nurse Practitioner Advanced Practice Nurse 01/09/16 Theodore Hernandez MD #2 [facility] [address] [place] [address] Consulting Physician Urology 02/08/24 Chandan Mcdaniel MD [address]2 [facility] [address] [place] [phone] Consulting Physician Endocrinology 06/10/24 documented as of this encounter
--- OUTSIDE RECORDS SUMMARY | 2024-11-10 15:35 | XMS_ITS | Encounter Summary ---
Author Organization [employer] Address [address] [place] [address] Care Team Providers Care Director Of Student Financial Aid Name Role Phone Darren Ledesma MD Primary Care Provider [phone] Encounter Details Date Type Department Care Team (Latest Contact Info) Description 01/20/2000 Outpatient Historical [facility] Peña Lagos MD [address] [place] [address] Lordosis (acquired) (postural) (Primary Dx) Social History Tobacco Use Types Packs/Day Years Used Date Smoking Tobacco: Never Assessed Comments Unknown Sex and Gender Information Value Date Recorded Sex Assigned at Not on file Legal Sex Female 3:20 AM NETWORK DEVELOPMENT COORDINATOR Gender Identity Not on file Sexual Orientation Not on file documented as of this encounter Plan of Treatment Not on file documented as of this encounter Visit Diagnoses Diagnosis Lordosis (acquired) (postural)- Primary documented in this encounter Care Teams Director Of Student Financial Aid Relationship Specialty Start Date End Date Darren Ledesma MD PCP - General Family Practice 04/29/15 documented as of this encounter
--- OUTSIDE RECORDS SUMMARY | 2024-11-10 15:35 | XMS_ITS | Encounter Summary ---
Author Organization [facility] Address [address] [place] [address] Phone Care Team Providers Care Can Sterilizer Name Role Phone Darren Ledesma MD Primary Care Provider [phone] Mala Thomas APRN, MAINFRAME SOFTWARE DEVELOPER Unavailable Theodore Hernandez MD Unavailable Chandan Mcdaniel MD Unavailable Reason for Visit * Reason Comments Medication Refill Encounter Details Date Type Department Care Team (Late st Contact Info) Description 04/16/2022 Refill [facility] - Family Medicine - [place] [address] [place] [phone] Darren Ledesma MD [address] [address] Medication Refill Social History Tobacco Use Types [...] Sex Assigned at Female 03/04/2024 5:39 PM POLICY CANCELLATION CLERK Legal Sex Female 7:42 PM CDT Gender Identity Female 03/04/2024 5:39 PM POLICY CANCELLATION CLERK Sexual Orientation Straight 03/04/2024 5: 39 PM POLICY CANCELLATION CLERK documented as of this encounter Miscellaneous Notes * Telephone Encounter - Nancy Collins RN - 04/17/2022 10:31 AM POLICY CANCELLATION CLERK Medication failed the protocol, provider to review and approve the medication order if appropriate. Requested Prescriptions Pending Prescriptions Disp Refills pregabalin (LYRICA) 50 MG Capsule [Pharmacy Med Name: PREGABALIN 50MG CAPSULES] 90 Capsule Sig: TAKE 1 CAPSULE BY MOUTH THREE TIMES DAILY Not Delegated - Anticonvulsants Excluding Benzodiazepines Protocol Failed - 04/16/2022 3:37 PM Failed - This refill cannot be delegated Passed - Visit with relevant provider in past 12 months or upcoming 90 days Recent Visits Date Type Provider Dept 03/04/22 Telemedicine Darren Ledesma MD [facility] 10/30/21 Telemedicine Darren Ledesma MD [facility] 07/22/21 Telemedicine Darren Ledesma MD [facility] 05/16/21 Office Visit Darren Ledesma MD [facility] Showing recent visits within past 365 days and meeting all other requirements Future Appointments Date Type Provider Dept 05/07/22 Appointment Darren Ledesma MD [facility] Showing future appointments within next 90 days and meeting all other requirements CY CANCELLATION CLERK documented in this encounter Plan of Treatment Upcoming Encounters Date Type Department Care Team (Late st Contact Info) Description 01/02/2025 11:30 AM POLICY CANCELLATION CLERK Office Visit [facility] - Endocrinology - [place] [address] [place] [address] Chandan Mcdaniel MD #[address] [facility] [address] [place] [address] 01/02/2025 11:45 AM POLICY CANCELLATION CLERK [facility] - [place] [address] [place] [address] 01/23/2025 4:00 PM POLICY CANCELLATION CLERK [facility] - [place] [address] [facility] [place] [address] Darren Ledesma MD #[address] [facility] [address] [place] [address] documented as of this encounter Visit Diagnoses Diagnosis Nerve pain Neuralgia, neuritis, and radiculitis, unspecified documented in this encounter Additional Health Concerns Infection Onset Date Last Indicated Resolved Time C. difficile Rule-Out 06/03/2022 06/04/20222022 2:58 AM CDT COVID - 19 01/14/2023 01/14/2023 01/15/2023 3:13 PM POLICY CANCELLATION CLERK Assessment Noted Time PHQ-9 Depression Total Score: 0 05/17/19 22 4:00 PM CDT documented as of this encounter Care Teams Can Sterilizer Relationship Specialty Start Date End Date Darren Ledesma MD #[address] [facility] [address] [place] [address] PCP - General Family Medicine 12/29/14 Mala Thomas, KNIT GOODS WASHER, MAINFRAME SOFTWARE DEVELOPER #[address] [facility] [address] [place] [address] Nurse Practitioner Advanced Practice Nurse 01/09/16 Theodore Hernandez MD #2 [facility] [address] [place] [address] Consulting Physician Urology 02/08/24 Chandan Mcdaniel MD #[address] [address] Consulting Physician Endocrinology 06/10/24 documented as of this encounter
--- OUTSIDE RECORDS SUMMARY | 2024-11-10 15:35 | XMS_ITS | Clinical Summary ---
Author Organization [facility] Address [address] [place] [address] Care Team Providers Care Animal Shelter Worker Name Role Phone Kobi Lake DO Unavailable [phone] Darren Ledesma MD Primary Care Provider [phone] Source Comments [facility],non-owned Affiliates and Associated Physician Practices is amultiple site organization consisting of ambulatory clinics and hospital sitesin [place], [place], [place] and [place]. This disclosure is being madepursuant to the Care Everywhere program and may not contain all information available regarding this patient. Last updated 17.[facility] [employer] Allergies Active Allergy Reactions Criticality Noted Date Comments Insulin Glargine Itching 03/10/2019 Basaglar insulin (not Lantus) caused worsening of depressed mood and itching Clonazepam Itching 10/10/2013 Metformin Other Medium 11/09/2018 Causes ulcers and diarrhea Penicillins Itching 08/31/2013 Prednisone Itching 10/10/2013 Oral makes her suicidal Medications * Be aware that medications may not be up to date on this document. Alwaysverify current medications with the patient. lamoTRIgine (LAMICTAL) 200 MG tablet Take 1 (one) tablet by mouth once daily Active hydrOXYzine pamoate (VISTARIL) 25 MG capsule Take 25 mg by mouth 4 times daily as needed for Anxiety. Active venlafaxine XR 24hr (EFFEXOR XR) 75 MG capsule Take 3 (three) capsules by mouth daily with breakfast Active gabapentin (NEURONTIN) 300 MG capsule Take 1 Cap by mouth 3 times daily. 90 Cap 0 4 Active Additional Information Patient not taking.Reported on 11/19/2023 levothyroxine (SYNTHROID) 100 MCG tablet Take 1 (one) tablet by mouth daily before breakfast Active tiZANidine (ZANAFLEX) 4 MG tablet Take 1 (one) tablet by mouth at bedtime Active omeprazole (PRILOSEC) 40 MG capsule Take 1 (one) capsule by mouth once daily 3 8 Active glipiZIDE (GLUCOTROL) 10 MG tablet Take 10 mg by mouth 2 times daily Active hyoscyamine 0.125 MG tablet Take 0.125 mg by mouth every 4 hours as needed for Spasms Active lisinopril (PRINIVIL; ZESTRIL) 40 MG tablet Take 1 (one) tablet by mouth once daily Active amLODIPine (NORVASC) 5 MG tablet Take 1 (one) tablet by mouth once daily Active pioglitazone (ACTOS) 45 MG tablet Take 1 (one) tablet by mouth once daily Active BASAGLAR KWIKPEN (BASAGLAR) pen Inject 28 (twenty eight) Units subcutaneously at bedtime 2 9 Active oxyCODONE, immediate release, 10 MG tablet Take 1 tablet by mouth 2 times daily as needed 60 tablet 9 Active Additional Information Patient not taking.Reported on 11/19/2023 atorvastatin (LIPITOR) 40 MG tablet Take 1 (one) tablet by mouth once daily 9 Active Blood Glucose Monitoring Suppl (Encore.fm VERIO) w/Device KIT Use 1 kit once daily 9 Active vitamin D, ergocalciferol , (DRISDOL) 1.25 MG (27550 UT) capsule TK ONE C PO ONCE A WEEK FOR 12 DOSES 0 Active ONETOUCH VERIO test strip 0 Active hydrocortisone , rectal, (ANUSOL-HC) 2.5 % cream Apply to affected area once daily 9 Active hydrOXYzine hcl (ATARAX) 25 MG tablet 9 Active ibuprofen (MOTRIN) 600 MG tablet Take 600 mg by mouth 0 Active oxyCODONE, immediate release, (ROXICODONE) 5 MG tablet Take 1 tablet by mouth 2 times daily as needed for Pain 60 tablet 0 Active Additional Information Patient not taking.Reported on 06/19/2022 insulin lispro (HumaLOG KwikPen) 100 UNIT/ML pen ADMINISTER 12 UNITS UNDER THE SKIN THREE TIMES DAILY BEFORE MEALS 3 Active insulin glargine (Lantus/Semgle e) 100 units/mL pen Inject subcutaneously at bedtime Active ALPRAZolam (Xanax) 0.5 MG tablet Take one tablet 1 hour prior to procedure and one tablet 30 minutes before procedure if needed 2 tablet 4 Active Additional Information Patient not taking.Reported on 10/15/2023 meloxicam (Mobic) 15 MG tablet Take 1 (one) tablet by mouth once daily 30 tablet 4 Active methylPREDNISo lone (Medrol Dosepak) 4 MG tablet Take 1 (one) tablet by mouth as directed 1 dose pack 21 tablet 4 Active Additional Information Patient not taking.Reported on 11/19/2023 Active Problems Patient Care Coordination No te Formatting of this note migh t be different from the original. PATIENT NEEDS INSURANCE REFERRAL, [facility] Problem Noted Date Diagnosed Date Post-operative state, Left SI Joint fusion dos 07/21/2018 Post-operative state, Left SI Joint fusion dos 06/23/2018 Post-operative state, Right SI Joint fusion dos 01/11/18 01/22/2018 Sacroiliitis 12/10/2017 Frequent falls 09/25/2017 Hypothyroidism 07/07/2017 Acute pyelonephritis 11/26/2016 Acute unilateral obstructive uropathy 11/26/2016 Hyponatremia 11/26/2016 Left nephrolithiasis 11/26/2016 History of neck surgery 10/16/2016 Chronic pain disorder 02/29/2016 Elevated hemoglobin A1c 02/29/2016 Acute pancreatitis 12/18/2015 Hypertension 12/18/2015 Morbid obesity 12/18/2015 Nicotine abuse 12/18/2015 Gastroesophageal reflux disease 07/19/2015 Tobacco use 04/29/2015 B12 deficiency 03/05/2015 Type 2 diabetes mellitus treated without insulin 03/05/2015 Hyperlipidemia 03/05/2015 Vitamin D deficiency 03/05/2015 Fusion of spine of lumbar region, TLIF 9.3.2014 11/11/2013 MRSA (methicillin resistant staph aureus) cultur e positive 10/10/2013 Overview (2013): pre-op nasal screen Stenosis, spinal, lumbar 08/17/2013 Resolved Problems Problem Noted Date Diagnosed Date Resolved Date Chronic narcotic use 09/25/2017 019 UTI (urinary tract infection) 01/19/2017 02/10/2018 Social History Tobacco Use Types Packs/Day Years Used Date Smoking Tobacco: Former Cigarettes 1 25 0 05/16/2017 - 05/17/2017 Smokeless Tobacco: Former Tobacco Cessation:Counseling Given: Not Answered Alcohol Use Standard Drinks/Week Comments Yes 0 (1 standard drink = 0.6 oz pur e alcohol) rare PHQ-2 Answer Date Recorded Patient Health Questionnaire-2 Score 0 11/19/2023 Comments No Sex and Gender Information Value Date Recorded Sex Assigned at Female 08/11/2023 3:56 PM CDT Legal Sex Female 8:45 AM CDT Gender Identity Not on file Sexual Orientation Not on file Last Filed Vital Signs Vital Sign Reading Time Taken Comments Blood Pressure 170/95 07/07/2022 7:48 AM CDT Pulse 93 07/07/2022 7:48 AM CDT Temperature 36.7 C (98 F) 07/07/2022 6:22 AM CDT Respiratory Rate 16 07/07/2022 7:48 AM CDT Oxygen Saturation 7% 07/07/2022 7:48 AM CDT Inhaled Oxygen Concentration - - Weight 154.7 kg (341 lb) 07/07/2022 6:22 AM CDT Height 182.9 cm (6') 07/07/2022 6:22 AM CDT Body Mass Index 46.25 07/07/2022 6:22 AM CDT Plan of Treatment Health Maintenance Due Date Last Done Comments COLOGUARD (AGES 45-75) - COLON CA SCREENING 1972 COLON MONITORING 1972 COLONOSCOPY - COLON CA SCREENING 1972 CT COLONOGRAPHY - COLON CA SCREENING 1972 Colorectal Cancer Screening 1972 FIT - COLON CA SCREENING 1972 FLEX SIG - COLON CA SCREENING 1972 HIV SCREENING 10/19/1987 HEPATITIS C SCREENING 10/14/1990 DTAP/TDAP/TD VACCINES (1 - Tdap) 10/19/1991 HEPATITIS B VACCINE (1 of 3 - 19+ 3-dose series) 10/19/1991 PNEUMOCOCCAL VACCINE 50+ (1 of 2 - PCV) 10/19/1991 DIABETES RETINOPATHY SCREENING 04/05/2018 DIABETES-FOOT EXAM WITH MONOFILAMENT 04/05/2018 PAP SMEAR 11/14/2019 11/13/2016 MAMMOGRAM 12/10/2019 12/09/2017, 12/09/2017 LUNG CANCER SCREENING 2022 ZOSTER VACCINE (1 of 2) 2022 DIABETES-HGB A1C 11/19/2023 05/20/2023, , 10/27/2021, Additional history exists DEPRESSION SCREENING 02/17/2024 10/15/2023 DIABETES - URINE PROTEIN SCREENING 02/17/2024 08/21/2022 DIABETES-SERUM CREATININE 09/22/20242023, 09/23/2023, 06/03/2022, Additional history exists COVID-19 VACCINE ( - 2024- season) 2024 05/12/2020, 04/19/2020 INFLUENZA VACCINE (#1) 2024 , 12/17/2015, 11/17/2015 HIB VACCINE Aged Out No longer eligi ble based on patient's age to complete this topic HPV VACCINE Aged Out No longer eligi ble based on patient's age to complete this topic MENINGOCOCCAL (Group B) VACCINE SHARED DECISION-MAKING Aged Out No longer eligible based on patient's age to complete this topic MENINGOCOCCAL GROUPS A/C/Y/W VACCINE Aged Out No longer eligible based on patient's age to complete this topic Medical Devices Implanted Type Area Paraprofessional Education Assistant Device Identifier Shelf Expiration Date Model / Serial / Lot Nanoss Bioact Loaded Syr 10cc Implanted:Qty: 1 on 10/19/2013 by Kobi Lake DO at [facility] [employer] 04/18/2014 90-200-10 / / [id number] Spacer T-Plif 15mm - [id number] Implanted:Qty: 1 on 10/19/2013 by Kobi Lake DO at [facility] [employer] 07/02/2015 [id number] / [id number] / Spacer T-Plif 11mm - [id number] Implanted:Qty: 1 on 10/19/2013 by Kobi Lake DO at [facility] [employer] 05/24/2016 [id number] / [id number] / Rti Pioner Polyaxial Screw Implanted:Qty: 4 on 10/19/2013 by Kobi Lake DO at [facility] [employer] -[id number] / / Rti [employer] Polyaxial Screw Implanted:Qty: 2 on 10/19/2013 by Kobi Lake DO at [facility] [employer] [id number] / / Pre-Bent Girma Implanted:Qty: 2 on 10/19/2013 by Kobi Lake DO at [facility] [id number] / / Set Screw Implanted:Qty: 6 on 10/19/2013 by Kobi Lake DO at [facility] [employer] 01-[id number] / / Implt Dual Lead Sacroiliac 11.5 X 50 Implanted:Qty: 1 on 01/11/2018 by Kobi Lake DO at [facility] Right: Sacral Iliac Joint [employer] [id number] / / Implt Dual Lead Sacroiliac 11.5 X 45 Implanted:Qty: 1 on 01/11/2018 by Kobi Lake DO at [facility] Right: Sacral Iliac Joint [employer] [id number] / / Graft Bone Alfs + Dbm 8ml Pst Implanted:Qty: 1 on 01/11/2018 by Kobi Lake DO at [facility] Right: Sacral Iliac Joint [employer] 07/10/2018 [id number] / / [id number] Implt Dual Lead Sacroiliac 11.5 X 60 Implanted:Qty: 1 on 01/11/2018 by Kobi Lake DO at [facility] Right: Sacral Iliac Joint [employer] [id number] / / Graft Bone Alfs + Dbm 8ml Pst Implanted:Qty: 1 on 06/14/2018 by Kobi Lake DO at [facility] Left: Back [employer] 10/03/2018 [id number] / / [id number] Implt Dual Lead Sacroiliac 11.5 X 65 Implanted:Qty: 1 on 06/14/2018 by Kobi Lake DO at [facility] Left: Back [employer] [id number] / / Implt Dual Lead Sacroiliac 11.5 X 50 Implanted:Qty: 2 on 06/14/2018 by Kobi Lake DO at [facility] Left: Back [employer] [id number] 0 / / Explanted Type Area Paraprofessional Education Assistant Device Identifier Shelf Expiration Date Model / Serial / Lot Setscrew Explanted:Qty: 1 on 10/19/2013 at [facility] Back [employer] 01-SETSCREW / / Proc Sij Sacroiliac Joint Fusion Explanted:Qty: 1 on 01/11/2018 at [facility] Right: Sacral Iliac Joint [employer] SIJ CORELINK / / Proc Sij Sacroiliac Joint Fusion Explanted:Qty: 1 on 06/14/2018 at [facility] Left: Back [employer] SIJ COR CUAUHTEMOC / / Description:[id number] Procedures Procedure Name Priority Date/Time Associated Diagnosis Comments HEMOGLOBIN A1C Routine 06/15/2018 4:48 AM CDT Type 2 diabetes mellitus treated without insulin COMPREHENSIVE METABOLIC PANEL STAT 05/10/2018 10:17 AM CDT Preop examination from Last 3 Months or Most Recently Relevant to Health Maintenance Results * (ABNORMAL) HEMOGLOBIN A1C (06/15/2018 4:48 AM CDT) Hemoglobin A1c 7.1(H) 4.0 - 6.1 % 06/15/2018 5:10 AM [facility] Estimated Average Glucose 157 mg/dL 06/15/2018 5:10 AM [facility] Blood BLOOD SPECIMEN / Unknown Lab Venipuncture / Unknown 06/15/2018 4:48 AM CDT 06/15/2018 4:50 AM [facility] - 06/15/2018 5:10 AM CDT Attention clinician: Reference Range has changed. us Kobi Lake DO LAB - CHEMISTRY ORDERABLES F inal Result [facility] [address] [place] [address] * (ABNORMAL) COMPREHENSIVE METABOLIC PANEL (05/10/2018 10:17 AM CDT) Glucose 173(H) 74 - 106 mg/dL 05/10/2018 10:39 AM [facility] Sodium 137 136 - 145 mmol/L 05/10/2018 10:39 AM [facility] Potassium 4.2 3.5 - 5.1 mmol/L 05/10/2018 10:39 AM [facility] Chloride 103 98 - 107 mmol/L 05/10/2018 10:39 AM [facility] CO2 28 22 - 31 mmol/L 05/10/2018 10:39 AM [facility] Calcium 9.0 8.5 - 10.1 mg/dL 05/10/2018 10:39 AM [facility] Anion Gap 6(L) 8 - 16 mmol/L 05/10/2018 10:39 AM [facility] BUN 12.8 7 - 21 mg/dL 05/10/2018 10:39 AM [facility] Creatinine 0.78 0.50 - 1.30 mg/dL 05/10/2018 10:39 AM [facility] Alkaline Phosphatase 73 38 - 126 U/L 05/10/2018 10:39 AM [facility] ALT 28 13 - 61 U/L 05/10/2018 10:39 AM [facility] AST 16 5 - 40 U/L 05/10/2018 10:39 AM CDT [facility] Protein Total 7.9 6.4 - 8.2 gm/dL 05/10/2018 10:39 AM CDT [facility] Albumin 3.8 3.4 - 5.0 gm/dL 05/10/2018 10:39 AM CDT [facility] Bilirubin Total 0.3 0.2 - 1.0 mg/dL 05/10/2018 10:39 AM CDT [facility] eGFR by MDRD >60 >60 mL/min/1.7 3m2 05/10/2018 10:39 AM CDT [facility] eGFR by MDRD >60 >60 mL/min/1.7 3m2 05/10/2018 10:39 AM CDT [facility] Blood BLOOD SPECIMEN / Unknown Venipuncture / Unknown 05/10/2018 10:17 AM CDT 05/10/2018 10:17 AM CDT Klever Medina MD LAB - CHEMISTRY ORDERABLES Final Result [facility] [address] [place] [address] from Last 3 Months or Most Recently Relevant to Health Maintenance Insurance [facility] Advance Directives * Full Code (Latest Code Status on File) Date Activated Date Inactivated Comments 06/14/2018 12:18 PM 06/15/2018 9:40 AM * Full Code Date Activated Date Inactivated Comments 01/11/2018 7:42 PM 01/12/2018 3:49 PM * Full Code Date Activated Date Inactivated Comments 10/19/2013 5:14 PM 10/22/2013 1:04 PM Care Teams Animal Shelter Worker Relationship Specialty Start Date End Date Darren Ledesma MD PCP - General Family Medicine 10/31/14 Kobi Lake DO Orthopedic Surgery 02/17/14
--- OUTSIDE RECORDS SUMMARY | 2024-11-10 15:36 | XMS_ITS | Encounter Summary ---
Author Organization [facility] Address [address] [place] [address] Phone Care Team Providers Care Cellar Hand Name Role Phone Darren Ledesma MD Primary Care Provider [phone] Mala Thomas APRN, CABLE INSTALLATION MANAGER Unavailable Theodore Hernandez MD Unavailable Chandan Mcdaniel MD Unavailable Reason for Visit * Reason Comments Medication Refill Encounter Details Date Type Department Care Team (Late st Contact Info) Description 02/15/2021 Refill [facility] - Family Medicine [facility] [address] [place] [address] Darren Ledesma MD [address] [address] Medication Refill Social History Tobacco Use Types Packs/Day Years Used Date Smoking Tobacco: Former Cigarettes 1 30 1 - 12/07/2017 Smokeless Tobacco: Never Alcohol Use Standard Drinks/Week Comments Yes 0 (1 standard drink = 0.6 oz pur e alcohol) usually about 2 drinks a year PHQ-2 Answer Date Recorded PHQ-2 Score 1 2018 Education Answer Date Recorded What is the highest level of school you have completed or the highest degree you have received? Some college, no degree 11/15/2019 Sexually Active Control Partners Comments Yes Male Comments No Sex and Gender Information Value Date Recorded Sex Assigned at Female 03/04/2024 5:39 PM CASE THERAPIST Legal Sex Female 7:42 PM CDT Gender Identity Female 03/04/2024 5:39 PM CASE THERAPIST Sexual Orientation Straight 03/04/2024 5: 39 PM CASE THERAPIST documented as of this encounter Miscellaneous Notes * Telephone Encounter - Hina James RN - 02/18/2021 11:45 AM CST 90 days filled 02/05/21 per MEDD THERAPIST documented in this encounter Plan of Treatment Upcoming Encounters Date Type Department Care Team (Late st Contact Info) Description 01/02/2025 11:30 AM CASE THERAPIST [facility] [place] [address] [place] [address] Chandan Mcdaniel MD #[address] [address] 01/02/2025 11:45 AM CASE THERAPIST Procedure Visit [facility] - Endocrinology - [place] [address] [place] [address] 01/23/2025 4:00 PM CASE THERAPIST Office Visit [facility] Family Medicine [facility] [address] [place] [address] Darren Ledesma MD #[address] [address] documented as of this encounter Visit Diagnoses Not on filedocumented in this encounter Additional Health Concerns Infection Onset Date Last Indicated Resolved Time COVID - 19 06/13/2021 06/13/2021 07/03/2021 12:1 6 AM CDT C. difficile Rule-Out 06/03/2022 06/04/20222022 2:58 AM CDT COVID - 19 01/14/2023 01/14/2023 01/15/2023 3:13 PM CASE THERAPIST Assessment Noted Time PHQ-9 Depression Total Score: 1 02/05/20 18 8:34 AM CASE THERAPIST documented as of this encounter Care Teams Cellar Hand Relationship Specialty Start Date End Date Darren Ledesma MD #2 [facility] [address] [place] [address] PCP - General Family Medicine 12/29/14 Mala Thomas APRN, CABLE INSTALLATION MANAGER #2 [facility] [address] [place] [address] Nurse Practitioner Advanced Practice Nurse 01/09/16 Theodore Hernandez MD #2 [facility] [address] [place] [address] Consulting Physician Urology 02/08/24 Chandan Mcdaniel MD #2 [facility] [address] [place] [address] Consulting Physician Endocrinology 06/10/24 documented as of this encounter
--- OUTSIDE RECORDS SUMMARY | 2024-11-10 15:36 | XMS_ITS | Encounter Summary ---
Author Organization [facility] Address [address] [place] [address] Phone Care Team Providers Care Vamp Marker Name Role Phone Darren Ledesma MD Primary Care Provider [phone] Mala Thomas APRN, MANAGER WAREHOUSE Unavailable Theodore Hernandez MD Unavailable Chandan Mcdaniel MD Unavailable Reason for Visit * Reason Comments Medication Refill Encounter Details Date Type Department Care Team (Late st Contact Info) Description 09/09/2022 Refill [facility] - Family Medicine - [place] [address] [place] [phone] Darren Ledesma MD #[address] [address] Medication Refill Social History Tobacco Use Types Packs/Day Years Used Date Smoking Tobacco: Former Cigarettes 1 30 1 - 12/07/2017 Smokeless Tobacco: Never Alcohol Use Standard Drinks/Week Comments Yes 0 (1 standard drink = 0.6 oz pur e alcohol) usually about 2 drinks a year PHQ-2 Answer Date Recorded Total Score - Questions 1-9 0 04/0 06/2022 Education Answer Date Recorded What is the highest level of school you have completed or the highest degree you have received? GED or equivalent Sexually Active Control Partners Comments Yes Male Comments No Sex and Gender Information Value Date Recorded Sex Assigned at Female 03/04/2024 5:39 PM MANAGER FINANCIAL Legal Sex Female 7:42 PM CDT Gender Identity Female 03/04/2024 5:39 PM MANAGER FINANCIAL Sexual Orientation Straight 03/04/2024 5: 39 PM MANAGER FINANCIAL documented as of this encounter Miscellaneous Notes * Telephone Encounter - Hina James RN - 09/09/2022 11:34 AM CDT Refills on file according to last Rx documented in this encounter Plan of Treatment Upcoming Encounters Date Type Department Care Team (Late st Contact Info) Description 01/02/2025 11:30 AM MANAGER FINANCIAL Office Visit [facility] - Endocrinology [facility] [address] [place] [address] Chandan Mcdaniel MD #[address] [address] 01/02/2025 11:45 AM MANAGER FINANCIAL Procedure Visit [facility] - Endocrinology - [place] [address] [place] [address] 01/23/2025 4:00 PM MANAGER FINANCIAL Office Visit [facility] Family Medicine [facility] [address] [place] [address] Darren Ledesma MD #[address] [address] documented as of this encounter Visit Diagnoses Diagnosis Chronic pain syndrome documented in this encounter Additional Health Concerns Infection Onset Date Last Indicated Resolved Time COVID - 19 01/14/2023 01/14/2023 01/15/2023 3:13 PM MANAGER FINANCIAL Assessment Noted Time PHQ-9 Depression Total Score: 0 05/22/19 23 1:49 PM CDT documented as of this encounter Care Teams Vamp Marker Relationship Specialty Start Date End Date Darren Ledesma MD #2 [facility] [address] [place] [address] PCP - General Family Medicine 12/29/14 Mala Thomas, EDUCATIONAL TECHNOLOGY SPECIALIST, MANAGER WAREHOUSE #2 [facility] [address] [place] [address] Nurse Practitioner Advanced Practice Nurse 01/09/16 Theodore Hernandez MD #2 [facility] [address] [place] [address] Consulting Physician Urology 02/08/24 Chandan Mcdaniel MD #2 [facility] [address] [place] [phone] Consulting Physician Endocrinology 06/10/24 documented as of this encounter
--- OUTSIDE RECORDS SUMMARY | 2024-11-10 15:36 | XMS_ITS | Encounter Summary ---
Author Organization [facility] Address [address] [facility] [place] [address] Care Team Providers Care Co Founder And President Name Role Phone Gianluca Tse MD Primary Care Provider [phone] Kobi Lake DO Unavailable [phone] Darren Ledesma MD Primary Care Provider [phone] Encounter Details Date Type Department Care Team (Late st Contact Info) Description 08/26/2013 [facility] Outpatient Visit [facility] Orthopedics - Radiology [address] [facility] [place] [address] Kobi Lake, DO [address] [place] [address] Social History Tobacco Use Types Packs/Day Years Used Date Smoking Tobacco: Never Assessed Comments No Sex and Gender Information Value [...] documented as of this encounter Care Teams Co Founder And President Relationship Specialty Start Date End Date Gianluca Tse MD PCP - General Internal Medicine 08/17/13 10/30/14 Darren Ledesma MD PCP - General Family Medicine 10/31/14 Kobi Lake DO Orthopedic Surgery 02/17/14 documented as of this encounter
--- OUTSIDE RECORDS SUMMARY | 2024-11-10 15:36 | XMS_ITS | Encounter Summary ---
Author Organization [facility] Address [address] [place] [address] Phone Care Team Providers Care Lead Recreation Assistant Name Role Phone Darren Ledesma MD Primary Care Provider [phone] Mala Thomas APRN, DESIGN/ANIMATION INSTRUCTOR Unavailable Theodore Hernandez MD Unavailable Chandan Mcdaniel MD Unavailable Reason for Visit * Reason Comments Medication Refill Encounter Details Date Type Department Care Team (Late st Contact Info) Description 12/27/2023 Refill [facility] - Family Medicine - [place] [address] [place] [id number] Darren Ledesma MD #[address] [address] Medication Refill Social History Tobacco Use Types Packs/Day Years Used Date Smoking Tobacco: Former Cigarettes 1 25 0 06/21/1991 - 06/20/2016 Smokeless Tobacco: Never Alcohol Use Standard Drinks/Week Comments Yes 0 (1 standard drink = 0.6 oz pur e alcohol) usually about 2 drinks a year [facility] Utilities Answer Date Recorded In the past 12 months has th e electric, gas, oil, or water [employer] threatened to shut off services in your home? Patient declined 09/30/2023 Social Connection and Isolation Panel Answer Date Recorded In a typical week, how many times do you talk on the phone with family, friends, or neighbors? Patient declined 09/30/2023 How often do you get togethe r with friends or relatives? Patient declined 09/30/2023 How often do you attend jainism or sabianist serv ices? Patient declined 09/30/2023 Do you belong to any clubs o r organizations such as jainism groups, unions, fraternal or athletic groups, or school groups? Patient declined 09/30/2023 How often do you attend meet ings of the clubs or organizations you belong to? Patient declined 09/30/2023 Are you , , di vorced, , never , or living with a partner? 09/30/2023 AUDIT-C Answer Date Recorded Q1: How often do you have a drink containing alc ohol? Patient declined 09/30/2023 Q2: How many drinks containi ng alcohol do you have on a typical day when you are drinking? Patient declined 09/30/2023 Q3: How often do you have si x or more drinks on one occasion? Patient declined 09/30/2023 Overall Financial Resource Strain (CARDIA) Answe r Date Recorded How hard is it for you to pa y for the very basics like food, housing, medical care, and heating? Patient declined 09/30/2023 PHQ-2 Answer Date Recorded Total Score - Questions 1-9 0 04/0 06/2022 [facility] - Occupational Stress Questionnaire Answer Date Recorded Do you feel stress - tense, restless, nervous, or anxious, or unable to sleep at night because your mind is troubled all the time - these days? Patient declined 09/30/2023 Exercise Vital Sign Answer Date Recorde d On average, how many days pe r week do you engage in moderate to strenuous exercise (like a brisk walk)? Patient declined On average, how many minutes do you engage in exercise at this level? Patient declined 09/30/2023 Hunger Vital Sign Answer Date Recorded Within the past 12 months, y ou worried that your food would run out before you got the money to buy more. Patient declined Within the past 12 months, t he food you bought just didn't last and you didn't have money to get more. Patient declined PRAPARE - Transportation Answer Date Re corded In the past 12 months, has l ack of transportation kept you from medical appointments or from getting medications? Patient declined 09/30/2023 In the past 12 months, has l ack of transportation kept you from meetings, work, or from getting things needed for daily living? Patient declined 09/30/2023 Housing Stability Vital Sign Answer Danny e Recorded In the last 12 months, was t here a time when you were not able to pay the mortgage or rent on time? Patient declined 05/19/19 24 In the last 12 months, how many places have you lived? 1 05/19/2023 In the last 12 months, was t here a time when you did not have a steady place to sleep or slept in a residential (including now)? No 05/19/2023 Housing Stability Vital Sign Answer Danny e Recorded In the last 12 months, was t here a time when you were not able to pay the mortgage or rent on time? Patient declined 09/30/19 24 Number of Times Moved in the Last Year Not on fi le 09/30/2023 At any time in the past 12 m [facility], were you homeless or living in a residential (including now)? Patient declined 09/30/2023 Education Answer Date Recorded What is the highest level of school you have completed or the highest degree you have received? GED or equivalent Sexually Active Control Partners Comments Yes None Male Comments No Sex and Gender Information Value Date Recorded Sex Assigned at Female 03/04/2024 5:39 PM CUSTOMS EXAMINER Legal Sex Female 7:42 PM CDT Gender Identity Female 03/04/2024 5:39 PM CUSTOMS EXAMINER Sexual Orientation Straight 03/04/2024 5: 39 PM CUSTOMS EXAMINER documented as of this encounter Plan of Treatment Upcoming Encounters Date Type Department Care Team (Late st Contact Info) Description 01/02/2025 11:30 AM CUSTOMS EXAMINER [facility] - [facility] - [place] [address] [place] [address] Chandan Mcdaniel MD #2 [facility] [address] [place] [address] 01/02/2025 11:45 AM CUSTOMS EXAMINER Procedure Visit [facility] - Endocrinology - [place] [address] [place] [address] 01/23/2025 4:00 PM CUSTOMS EXAMINER Office Visit [facility] - Family Medicine [facility] [address] [place] [address] Darren Ledesma MD #2 [facility] [address] [place] [address] documented as of this encounter Goals Goal Patient Goal Type Associated Problems Recent Progress Patient-Stated? Author Help patient manage hypertension Care Plan [facility] HYPERTENSION CONCERN (PATIENT ON HIGH BLOOD PRESSURE MEDICATIONS) No Darren Ledesma MD Help patient manage nicotine dependency Care Plan [facility] NICOTINE DEPENDENCY CONCERN No Darren Ledesma MD Help patients manage type 2 diabetes Care Plan [facility] TYPE 2 DIABETES CONCERN No Darren Ledesma MD Help patient manage blood glucose Care Plan [facility] TYPE 2 DIABETES INSULIN - ANALOG PATTERN CONCERN No Darren Ledesma MD Help patient manage nicotine dependency Care Plan [facility] NICOTINE DEPENDENCY CONCERN No Darren Ledesma MD documented as of this encounter Visit Diagnoses Not on filedocumented in this encounter Additional Health Concerns Active Problems Noted Date Diagnosed Date [facility] HYPERTENSION CONCERN (P ATIENT ON HIGH BLOOD PRESSURE MEDICATIONS) 01/21/2023 [facility] NICOTINE DEPENDENCY CONCERN 01/21/2023 [facility] TYPE 2 DIABETES CONCERN 01/21/2023 [facility] TYPE 2 DIABETES INSULIN - ANALOG PATTERN CO NCERN 01/21/2023 [facility] NICOTINE DEPENDENCY CONCERN 01/21/2023 Assessment Noted Time PHQ-9 Depression Total Score: 0 05/22/19 23 1:49 PM CDT documented as of this encounter Care Teams Lead Recreation Assistant Relationship Specialty Start Date End Date Darren Ledesma MD #2 [facility] [address] [place] [address] PCP - General Family Medicine 12/29/14 Mala Thomas APRN, DESIGN/ANIMATION INSTRUCTOR #2 [facility] [address] [place] [address] Nurse Practitioner Advanced Practice Nurse 01/09/16 Theodore Hernandez MD #2 [facility] [address] [place] [address] Consulting Physician Urology 02/08/24 Chandan Mcdaniel MD #2 [facility] [address] [place] [address] Consulting Physician Endocrinology 06/10/24 documented as of this encounter
--- OUTSIDE RECORDS SUMMARY | 2024-11-10 15:36 | XMS_ITS | Encounter Summary ---
Author Organization [facility] Address [address] [place] [address] Care Team Providers Care Show Girl Name Role Phone Kobi Lake DO Unavailable [phone] Darren Ledesma MD Primary Care Provider [phone] Encounter Details Date Type Department Care Team (Late st Contact Info) Description 06/18/2018 [facility] Outpatient Visit [facility] Orthopedics - Radiology [address] [place] [address] [place] [address] Document, Scanned Social History Tobacco Use Types [...] of Assessment Author No 06/14/2018 2:28 PM ZENAIDAT Nesha Higgins RN * Does person have [...] on filedocumented in this encounter Care Teams Show Girl Relationship Specialty Start Date End Date Darren Ledesma MD PCP - General Family Medicine 10/31/14 Kobi Lake DO Orthopedic Surgery 02/17/14 documented as of this encounter
--- OUTSIDE RECORDS SUMMARY | 2024-11-10 15:36 | XMS_ITS | Encounter Summary ---
Author Organization [facility] Address [address] [place] [address] Care Team Providers Care Cigar Packer And Picker Name Role Phone Gianluca Tse MD Primary Care Provider [phone] Kobi Lake DO Unavailable Darren Ledesma MD Primary Care Provider [phone] Encounter Details Date Type Department Care Team (Late st Contact Info) Description 09/23/2013 [facility] Outpatient Visit [facility] Orthopedics - Radiology [address] [place] [address] Kobi Lake, DO [address] [place] [address] Social History Tobacco Use Types Packs/Day [...] difficulty? Answer Date of Assessment Author No 09/12/2013 4:15 PM CDT Amarilis Santoyo RN * Is person blind or have serious difficulty seeing? Answer Date of Assessment Author No 09/12/2013 4:15 PM CDT Amarilis Santoyo RN * Does person have serious difficulty walking/climbing stairs? Answer Date of Assessment Author No 09/12/2013 4:15 PM CDT Amarilis Santoyo RN * Does person have difficulty dressing/bathing? Answer Date of Assessment Author No 09/12/2013 4:15 PM CDT Amarilis Santoyo RN * Does person have difficulty doing errands alone? Answer Date of Assessment Author No 09/12/2013 4:15 PM CDT Amarilis Santoyo RN documented as of this encounter Mental Status * Does person have difficulty concentrating/remembering/making decisions? 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
--- OUTSIDE RECORDS SUMMARY | 2024-11-10 15:36 | XMS_ITS | Encounter Summary ---
Author Organization [facility] Address [address] [place] [address] Phone Care Team Providers Care Truck Unloader Name Role Phone Darren Ledesma MD Primary Care Provider [phone] Mala Thomas APRN, RAG SHREDDER Unavailable Theodore Hernandez MD Unavailable Chandan Mcdaniel MD Unavailable Reason for Visit * Reason Comments Medication Refill Encounter Details Date Type Department Care Team (Late st Contact Info) Description 12/05/2020 [facility]ill [facility] - Family Medicine - [place] [address] [place] [address] Darren Ledesma MD #[address] [address] Medication Refill Social History Tobacco Use Types [...] Sex Assigned at Female 03/04/2024 5:39 PM HELMET COVERER Legal Sex Female 7:42 PM CDT Gender Identity Female 03/04/2024 5:39 PM HELMET COVERER Sexual Orientation Straight 03/04/2024 5: 39 PM HELMET COVERER documented as of this encounter Miscellaneous Notes * Telephone Encounter - Nidhi Davila RN - 12/05/2020 1:34 PM CDT Medication failed the protocol, provider to review and approve the medication order if appropriate. Requested Prescriptions Pending Prescriptions Disp Refills tiZANidine (ZANAFLEX) 4 MG Tablet [Pharmacy Med Name: TIZANIDINE 4MG TABLETS] 60 Tablet 2 Sig: TAKE 1 TABLET BY MOUTH TWICE DAILY Not Delegated - Muscle Relaxants Protocol Failed - 12/05/2020 11:34 AM Failed - This refill cannot be delegated Passed - Visit with relevant provider in past 12 months or upcoming 90 days Recent Visits Date Type Provider Dept 09/24/20 Office Visit Gianluca Bagley APN, JAXON Robbinspatricia Hernandez 09/12/20 Telemedicine Darren Ledesma MD [facility] 08/17/20 Telemedicine Gianluca Bagley APN, JAX[facility] Robbinspatricia Hernandez 07/02/20 Office Visit Darren Ledesma MD [facility] 03/07/20 Office Visit Gianluca Bagley APN, JAXON Robbinspatricia Hernandez 02/23/20 Telemedicine Darren Led[facility] MD [facility] Showing recent visits within past 365 days and meeting all other requirements Future Appointments No visits were found meeting these conditions. Showing future appointments within next 90 days and meeting all other requirements Passed - ALT less than 90 and AST less than 55 on record in past 12 months SGOT (AST) Date Value Ref Range Status 09/22/2020 15 <=32 U/L Final SGPT (ALT) Date Value Ref Range Status 09/22/2020 17 <=41 U/L Final documented in this encounter Plan of Treatment Upcoming Encounters Date Type Department Care Team (Late st Contact Info) Description 01/02/2025 11:30 AM HELMET COVERER [facility] [address]2 [facility] [place] [address] Chandan Mcdaniel MD #2 [facility] [address] [place] [address] 01/02/2025 11:45 AM HELMET COVERER Procedure Visit [facility] Endocrinology - [place] [address] [facility] [place] [address] 01/23/2025 4:00 PM HELMET COVERER Office Visit [facility] Family Medicine [facility] [address] [place] [address] Darren Ledesma MD #2 [facility] [address] [place] [address] documented as of this encounter Visit Diagnoses Diagnosis Chronic pain syndrome documented in this encounter Additional Health Concerns Infection Onset Date Last Indicated Resolved Time COVID - 19 12/30/2020 12/30/2020 01/19/2021 12:1 9 AM HELMET COVERER COVID - 19 06/13/2021 06/13/2021 07/03/2021 12:1 6 AM CDT C. difficile Rule-Out 06/03/2022 06/04/20222022 2:58 AM CDT COVID - 19 01/14/2023 01/14/2023 01/15/2023 3:13 PM HELMET COVERER Assessment Noted Time PHQ-9 Depression Total Score: 1 02/05/20 18 8:34 AM HELMET COVERER documented as of this encounter Care Teams Truck Unloader Relationship Specialty Start Date End Date Darren Ledesma MD #[address] [place] [address] PCP - General Family Medicine 12/29/14 Mala Thomas APRN, RAG SHREDDER #2 [facility] [address] [place] [address] Nurse Practitioner Advanced Practice Nurse 01/09/16 Theodore Hernandez MD #2 [facility] [address] [place] [address] Consulting Physician Urology 02/08/24 Chandan Mcdaniel MD #2 [facility] [address] [place] [address] Consulting Physician Endocrinology 06/10/24 documented as of this encounter
--- OUTSIDE RECORDS SUMMARY | 2024-11-10 15:36 | XMS_ITS | Encounter Summary ---
Author Organization [facility] Address [address] [place] [address] Phone Care Team Providers Care Aerial Gunner Superintendent Name Role Phone Darren Ledesma MD Primary Care Provider [phone] Mala Thomas APRN, SPECIAL NEEDS CAREGIVER Unavailable Theodore Hernandez MD Unavailable Chandan Mcdaniel MD Unavailable Reason for Visit * Reason Onset Date Comments Appointment 04/04/2024 Encounter Details Date Type Department Care Team (Late st Contact Info) Description 04/04/2024 Telephone [facility] [address] [place] [address] Darren Ledesma MD #[address] [address] Appointment Social History Tobacco Use Types Packs/Day Years Used Date Smoking Tobacco: Former Cigarettes 1 25 0 06/21/1991 - 06/20/2016 Smokeless Tobacco: Never Alcohol Use Standard Drinks/Week Comments Yes 0 (1 standard drink = 0.6 oz pur e alcohol) usually about 2 drinks a year [facility] Utilities Answer Date Recorded In the past 12 months has th e electric, gas, oil, or water [employer] threatened to shut off services in your home? Patient declined 03/28/2024 Social Connection and Isolation Panel Answer Date Recorded In a typical week, how many times do you talk on the phone with family, friends, or neighbors? More than three times a week 03/28/2024 How often do you get togethe r with friends or relatives? More than three times a week 03/28/2024 How often do you attend chur or yazidism services? Patient declined 03/28/2024 Do you belong to any clubs o r organizations such as confucianist groups, unions, fraternal or athletic groups, or school groups? Yes 03/28/2024 How often do you attend meet ings of the clubs or organizations you belong to? Patient declined 03/28/2024 Are you , , di vorced, , never , or living with a partner? 03/28/2024 AUDIT-C Answer Date Recorded Q1: How often do you have a drink containing alc ohol? Monthly or less 03/28/2024 Q2: How many drinks containi ng alcohol do you have on a typical day when you are drinking? 1 or 2 03/28/2024 Q3: How often do you have si x or more drinks on one occasion? Never 03/28/2024 Overall Financial Resource Strain (CARDIA) Answe r Date Recorded How hard is it for you to pa y for the very basics like food, housing, medical care, and heating? Hard 03/28/2024 PHQ-2 Answer Date Recorded Total Score - Questions 1-9 0 02/17 [facility] Occupat ional Health - Occupational Stress Questionnaire Answer Date Recorded Do you feel stress - tense, restless, nervous, or anxious, or unable to sleep at night because your mind is troubled all the time - these days? Very much 03/28/2024 Exercise Vital Sign Answer Date Recorde d On average, how many days pe r week do you engage in moderate to strenuous exercise (like a brisk walk)? 0 days On average, how many minutes do you engage in exercise at this level? Patient declined 03/28/2024 Hunger Vital Sign Answer Date Recorded Within the past 12 months, y ou worried that your food would run out before you got the money to buy more. Patient declined Within the past 12 months, t he food you bought just didn't last and you didn't have money to get more. Patient declined 11/2024 PRAPARE - Transportation Answer Date Re corded In the past 12 months, has l ack of transportation kept you from medical appointments or from getting medications? Patient declined 03/28/2024 In the past 12 months, has l ack of transportation kept you from meetings, work, or from getting things needed for daily living? Patient declined 03/28/2024 Housing Stability Vital Sign Answer Danny e [...] place to sleep or slept in a alf (including now)? No 05/19/2023 Housing Stability Vital Sign Answer Danny e Recorded In the last 12 months, was t here a time when you were not able to pay the mortgage or rent on time? No 03/28/2024 In the past 12 months, how m any times have you moved where you were living? 0 03/28/2024 At any time in the past 12 m [facility], were you homeless or living in a alf (including now)? No 03/28/2024 Education Answer Date Recorded What is the highest level of school you have completed or the highest degree you have received? GED or equivalent Sexually Active Control Partners Comments Yes None Male Comments No Sex and Gender Information Value Date Recorded Sex Assigned at Female 03/04/2024 5:39 PM WIRE BENDER Legal Sex Female 7:42 PM CDT Gender Identity Female 03/04/2024 5:39 PM WIRE BENDER Sexual Orientation Straight 03/04/2024 5: 39 PM WIRE BENDER documented as of this encounter Miscellaneous Notes * Telephone Encounter - Shayla Haddad RN - 04/06/2024 3:50 PM WIRE BENDER Order, OV note and demographics sheet faxed to [employer] BENDER * Telephone Encounter - Shelley Joseph APRN, CNP - 04/06/2024 3:29 PM WIRE BENDER OV signed. Orders placed BENDER * Telephone Encounter - Brittany Villatoro RN - 04/04/2024 12:40 PM CST Situation: Follow up Background: Joanie contacting PCP office. Assessment: - Patient requesting update on Wheelchair order - Reports wanting the order sent to [facility] - Requesting to cancel appointment for today due to transportation issues and having a bad day withpain in her body - Reports this is not new pain and has no new symptoms - Declines triage at this time - Reports she will reschedule appointment through [employer] Recommendation: - Appointment canceled for 04/04/2024 - Please advise Discussed utilizing [email or web address] to: schedule appointments BENDER documented in this encounter Plan of Treatment Upcoming Encounters Date Type Department Care Team (Late st Contact Info) Description 01/02/2025 11:30 AM WIRE BENDER Office Visit [facility] Medical [facility] - Endocrinology - [place] [address] [place] [address] Chandan Mcdaniel MD #[address] [address] 01/02/2025 11:45 AM WIRE BENDER Procedure Visit [facility] - Endocrinology - [place] [address] [place] [address] 01/23/2025 4:00 PM WIRE BENDER Office Visit [facility] - Family Medicine - [place] [address] [place] [address] Darren Ledesma MD #[address] [place] [address] documented as of this encounter Goals Goal [...] Noted Time PHQ-9 Depression Total Score: 0 03/16/19 25 12:32 PM WIRE BENDER documented as of this encounter Care Teams Aerial Gunner Superintendent Relationship Specialty Start Date End Date Darren Ledesma MD #2 [facility] [address] [place] [address] PCP - General Family Medicine 12/29/14 Mala Thomas, BACTERIOLOGIST DAIRY, SPECIAL NEEDS CAREGIVER #2 [facility] [address] [place] [address] Nurse Practitioner Advanced Practice Nurse 01/09/16 Theodore Hernandez MD #2 [facility] [address] [place] [address] Consulting Physician Urology 02/08/24 Chandan Mcdaniel MD #[address] [address] Consulting Physician Endocrinology 06/10/24 documented as of this encounter
--- OUTSIDE RECORDS SUMMARY | 2024-11-10 15:36 | XMS_ITS | Encounter Summary ---
Author Organization [facility] Address [address] [facility] [place] [address] Care Team Providers Care Senior Information Systems Architect Name Role Phone Kobi Lake DO Unavailable [phone] Darren Ledesma MD Primary Care Provider [phone] Encounter Details Date Type Department Care Team (Late st Contact Info) Description 06/15/2018 [facility] Outpatient Visit [facility] Orthopedics - Radiology [address] [place] [address] [place] [address] Document, Scanned Social History Tobacco Use Types [...] on filedocumented in this encounter Care Teams Senior Information Systems Architect Relationship Specialty Start Date End Date Darren Ledesma MD PCP - General Family Medicine 10/31/14 Kobi Lake DO Orthopedic Surgery 02/17/14 documented as of this encounter
--- OUTSIDE RECORDS SUMMARY | 2024-11-10 15:36 | XMS_ITS | Encounter Summary ---
Author Organization [facility] Address [address] [place] [address] Phone Care Team Providers Care Corrective And Manual Arts Therapist Name Role Phone Darren Ledesma MD Primary Care Provider [phone] Mala Thomas APRN, HISTORIC SITE ADMINISTRATOR Unavailable Theodore Hernandez MD Unavailable Chandan Mcdaniel MD Unavailable Reason for Visit * Reason Comments Medication Refill Encounter Details Date Type Department Care Team (Late st Contact Info) Description 03/13/2023 Refill [facility] - [facility] - [place] [address] [place] [id number] Darren Ledesma MD #[address] [address] Medication Refill Social History Tobacco Use Types [...] equivalent Sexually Active Control Partners Comments Yes Post-menopausal Male Comments No Sex and Gender Information Value Date Recorded Sex Assigned at Female 03/04/2024 5:39 PM TRACK INSPECTING SUPERVISOR Legal Sex Female 7:42 PM CDT Gender Identity Female 03/04/2024 5:39 PM TRACK INSPECTING SUPERVISOR Sexual Orientation Straight 03/04/2024 5: 39 PM TRACK INSPECTING SUPERVISOR documented as of this encounter Miscellaneous Notes * Telephone Encounter - Hina James RN - 03/13/2023 12:40 PM CST Medication failed the protocol, provider to review and approve the medication order if appropriate. Requested Prescriptions Pending Prescriptions Disp Refills tiZANidine (ZANAFLEX) 4 MG Tablet [Pharmacy Med Name: TIZANIDINE 4MG TABLETS] 90 Tablet 0 Sig: TAKE 1 TABLET BY MOUTH THREE TIMES DAILY Not Delegated - Muscle Relaxants Protocol Failed - 03/13/2023 8:03 AM Failed - This refill cannot be delegated Passed - Visit with relevant provider in past 12 months or upcoming 90 days Recent Visits Date Type Provider Dept 01/21/23 Telemedicine Darren Ledesma MD [facility] 06/05/22 Telemedicine Darren Ledesma MD [facility] 05/21/22 Office Visit Darren Ledesma MD [facility] [...] SGOT (AST) Date Value Ref Range Status 01/14/2023 32 5 - 34 U/L Final Comment: Specimen is hemolyzed. In vitro hemolysis could affect results. Clinical correlation advised. SGPT (ALT) Date Value Ref Range Status 01/14/2023 26 0 - 55 U/L Final K INSPECTING SUPERVISOR documented in this encounter Plan of Treatment Upcoming Encounters Date Type Department Care Team (Late st Contact Info) Description 01/02/2025 11:30 AM TRACK INSPECTING SUPERVISOR Office Visit [facility] Endocrinology [facility] [address] [place] [address] Chandan Mcdaniel MD #2 [facility] [address] [place] [address] 01/02/2025 11:45 AM TRACK INSPECTING SUPERVISOR Procedure Visit [facility] Endocrinology - [place] [address]2 [facility] [place] [address] 01/23/2025 4:00 PM TRACK INSPECTING SUPERVISOR Office Visit [facility] Family Medicine [facility] #2 [facility] [place] [address] Darren Ledesma MD #[address] [address] documented as of this encounter Goals Goal [...] Time PHQ-9 Depression Total Score: 0 05/22/19 1:49 PM CDT documented as of this encounter Care Teams Corrective And Manual Arts Therapist Relationship Specialty Start Date End Date Darren Ledesma MD #2 [facility] [address] [place] [address] PCP - General Family Medicine 12/29/14 Mala Thomas, MINCEMEAT MAKER, HISTORIC SITE ADMINISTRATOR #2 [facility] [address] [place] [address] Nurse Practitioner Advanced Practice Nurse 01/09/16 Theodore Hernandez MD #2 [facility] [address] [place] [address] Consulting Physician Urology 02/08/24 Chandan Mcdaniel MD #2 [facility] [address] [place] [address] Consulting Physician Endocrinology 06/10/24 documented as of this encounter
--- OUTSIDE RECORDS SUMMARY | 2024-11-10 15:36 | XMS_ITS | Encounter Summary ---
Author Organization [facility] Address [address] [place] [address] Phone Care Team Providers Care Cancer Registry Manager Name Role Phone Darren Ledesma MD Primary Care Provider [phone] Mala Thomas APRN, CARDING MACHINE FEEDER Unavailable Theodore Hernandez MD Unavailable Chandan Mcdaniel MD Unavailable Reason for Visit * Reason Comments Medication Refill Encounter Details Date Type Department Care Team (Late st Contact Info) Description 06/25/2023 Refill [facility] - [facility] - [place] [address] [place] [address] Darren Ledesma MD #[address] [address] Medication Refill Social History Tobacco Use Types Packs/Day Years Used Date Smoking Tobacco: Former Cigarettes 1 25 0 06/21/1991 - 06/20/2016 Smokeless Tobacco: Never Alcohol Use Standard Drinks/Week Comments Yes 0 (1 standard drink = 0.6 oz pur e alcohol) usually about 2 drinks a year [facility] Utilities Answer Date Recorded In the past 12 months has th e electric, gas, oil, or water [employer] threatened to shut off services in your home? Patient declined 05/19/2023 Social Connection and Isolation Panel Answer Date Recorded In a typical week, how many times do you talk on the phone with family, friends, or neighbors? More than three times a week 05/19/2023 How often do you get togethe r with friends or relatives? More than three times a week 05/19/2023 How often do you attend chur ch or rastafari services? Never 05/19/2023 Do you belong to any clubs o r organizations such as alevism groups, unions, fraternal or athletic groups, or school groups? No 05/19/2023 How often do you attend meet ings of the clubs or organizations you belong to? Never 05/19/2023 Are you , , di vorced, , never , or living with a partner? 05/19/2023 AUDIT-C Answer Date Recorded Q1: How often do you have a drink containing alc ohol? Monthly or less 05/19/2023 Q2: How many drinks containi ng alcohol do you have on a typical day when you are drinking? 1 or 2 05/19/2023 Q3: How often do you have si x or more drinks on one occasion? Less than monthly 05/19/2023 Overall Financial Resource Strain (CARDIA) Answe r Date Recorded How hard is it for you to pa y for the very basics like food, housing, medical care, and heating? Patient declined 05/19/2023 PHQ-2 Answer Date Recorded Total Score - Questions 1-9 0 06/2022 Exercise Vital Sign Answer Date Recorde d On average, how many days pe r week do you engage in moderate to strenuous exercise (like a brisk walk)? Patient declined On average, how many minutes do you engage in exercise at this level? Patient declined 05/19/2023 Hunger Vital Sign Answer Date Recorded Within the past 12 months, y ou worried that your food would run out before you got the money to buy more. Never true Within the past 12 months, t he food you bought just didn't last and you didn't have money to get more. Patient declined 03/2023 PRAPARE - Transportation Answer Date Re corded In the past 12 months, has l ack of transportation kept you from medical appointments or from getting medications? Patient declined 05/19/2023 In the past 12 months, has l ack of transportation kept you from meetings, work, or from getting things needed for daily living? Patient declined 05/19/2023 Housing Stability Vital Sign Answer Dnany e Recorded In the last 12 months, [...] place to sleep or slept in a mcfp (including now)? No 05/19/2023 Education Answer Date Recorded What is the highest level of school you have completed or the highest degree you have received? GED or equivalent Sexually Active Control Partners Comments Yes None Male Comments No Sex and Gender Information Value Date Recorded Sex Assigned at Female 03/04/2024 5:39 PM SECONDARY SET UP MAN Legal Sex Female 7:42 PM CDT Gender Identity Female 03/04/2024 5:39 PM SECONDARY SET UP MAN Sexual Orientation Straight 03/04/2024 5: 39 PM SECONDARY SET UP MAN documented as of this encounter Miscellaneous Notes * Telephone Encounter - Hina James RN - 06/26/2023 11:42 AM CDT Medication failed the protocol, provider to review and approve the medication order if appropriate. Requested Prescriptions Pending Prescriptions Disp Refills tiZANidine (ZANAFLEX) 4 MG Tablet [Pharmacy Med Name: TIZANIDINE 4MG TABLETS] 90 Tablet 0 Sig: TAKE 1 TABLET BY MOUTH THREE TIMES DAILY Not Delegated - Muscle Relaxants Protocol Failed - 06/25/2023 7:04 PM Failed - This refill cannot be delegated Passed - Visit with relevant provider in past 12 months or upcoming 90 days Recent Visits Date Type Provider Dept 05/20/23 Office Visit Darren Ledesma MD [facility] 03/26/23 Telemedicine Darren Ledesma MD [facility] 01/21/23 Telemedicine Darren Ledesma MD [facility] Showing recent visits within past 365 days and meeting all other requirements Future Appointments Date Type Provider Dept 08/19/23 Appointment Darren Ledesma MD [facility] Showing [...] 01/14/2023 26 0 - 55 U/L Final documented in this encounter Plan of Treatment Upcoming Encounters Date Type Department Care Team (Late st Contact Info) Description 01/02/2025 11:30 AM SECONDARY SET UP MAN Office Visit [facility] - Endocrinology - [place] [address]2 [place] [address] Chandan Mcdaniel MD #[address] [place] [address] 01/02/2025 11:45 AM SECONDARY SET UP MAN Procedure Visit [facility] - Endocrinology - [place] [address] [place] [address] 01/23/2025 4:00 PM SECONDARY SET UP MAN Office Visit [facility] Family Medicine - [place] #2 [place] [address] Darren Ledesma MD #[address] [place] [address] documented as of this encounter Goals Goal [...] documented as of this encounter Care Teams Cancer Registry Manager Relationship Specialty Start Date End Date Darren Ledesma MD #2 [facility] [address] [place] [address] PCP - General Family Medicine 12/29/14 Mala Thomas APRN, CARDING MACHINE FEEDER #2 [facility] [address] [place] [address] Nurse Practitioner Advanced Practice Nurse 01/09/16 Theodore Hernandez MD #2 [facility] [address] [place] [address] Consulting Physician Urology 02/08/24 Chandan Mcdaniel MD #2 [facility] [address] [place] [phone] Consulting Physician Endocrinology 06/10/24 documented as of this encounter
--- OUTSIDE RECORDS SUMMARY | 2024-11-10 15:36 | XMS_ITS | Encounter Summary ---
Author Organization [facility] Address [address] [place] [address] Phone Care Team Providers Care Skills Instructor Name Role Phone Darren Ledesma MD Primary Care Provider [phone] Mala Thomas APRN, PERFORMANCE ARCHITECT Unavailable Theodore Hernandez MD Unavailable Chandan Mcdaniel MD Unavailable Reason for Visit * Reason Comments Medication Refill Encounter Details Date Type Department Care Team (Late st Contact Info) Description 07/31/2023 Refill [facility] - Family Medicine [facility] #2 [place] [phone] Darren Ledesma MD #[address] [address] Medication Refill Social History Tobacco Use Types Packs/Day Years Used Date Smoking Tobacco: Former Cigarettes 1 25 0 06/21/1991 - 06/20/2016 Smokeless Tobacco: Never Alcohol Use Standard Drinks/Week Comments Yes 0 (1 standard drink = 0.6 oz pur e alcohol) usually about 2 drinks a year [facility] Utilities Answer Date Recorded In the past 12 months has th e electric, gas, oil, or water [employer] threatened to shut off services in your [...] often do you attend chur ch or holiness services? Never 05/19/2023 Do you belong to any clubs o r organizations such as druze groups, unions, fraternal or athletic groups, or [...] declined 05/19/2023 Housing Stability Vital Sign Answer Danny [...] place to sleep or slept in a group home (including now)? No 05/19/2023 Education Answer Date Recorded What is the highest level of school you have completed or the highest degree you have received? GED or equivalent Sexually Active Control Partners Comments Yes None Male Comments No Sex and Gender Information Value Date Recorded Sex Assigned at Female 03/04/2024 5:39 PM FUSE COILER Legal Sex Female 7:42 PM CDT Gender Identity Female 03/04/2024 5:39 PM FUSE COILER Sexual Orientation Straight 03/04/2024 5: 39 PM FUSE COILER documented as of this encounter Miscellaneous Notes * Telephone Encounter - Awilda Vazquez RN - 08/01/2023 6:37 PM CDT Medication failed the protocol, provider to review and approve the medication order if appropriate. Requested Prescriptions Pending Prescriptions Disp Refills tiZANidine (ZANAFLEX) 4 MG Tablet [Pharmacy Med Name: TIZANIDINE 4MG TABLETS] 90 Tablet 0 Sig: TAKE 1 TABLET BY MOUTH THREE TIMES DAILY Not Delegated - Muscle Relaxants Protocol Failed - 07/31/2023 7:31 PM Failed - This refill cannot be delegated Passed - Visit with relevant provider in past 12 months or upcoming 90 days Recent Visits Date Type Provider Dept 07/16/23 Telemedicine Darren Ledesma MD [facility] 05/20/23 Office Visit Darren Ledesma MD [facility] 03/26/23 Telemedicine Darren Ledesma MD [facility] 01/21/23 Telemedicine Darren Ledesma MD [facility] Showing recent visits within past 365 days [...] st Contact Info) Description 01/02/2025 11:30 AM FUSE COILER Office Visit [facility] Endocrinology [facility] #2 [place] [address] Chandan Mcdaniel MD #[address] [place] [address] 01/02/2025 11:45 AM FUSE COILER Procedure Visit [facility] Endocrinology - [place] #2 [place] [address] 01/23/2025 4:00 PM FUSE COILER Office Visit [facility] Family Medicine [facility] #2 [facility] [place] [address] Darren Ledesma MD #[address] [place] [address] documented as of this encounter Goals Goal [...] documented as of this encounter Care Teams Skills Instructor Relationship Specialty Start Date End Date Darren Ledesma MD #2 [facility] [address] [place] [address] PCP - General Family Medicine 12/29/14 Mala Thomas APRN, PERFORMANCE ARCHITECT #2 [facility] [address] [place] [address] Nurse Practitioner Advanced Practice Nurse 01/09/16 Theodore Hernandez MD #2 [facility] [address] [place] [address] Consulting Physician Urology 02/08/24 Chandan Mcdaniel MD #2 [facility] [address] [place] [phone] Consulting Physician Endocrinology 06/10/24 documented as of this encounter
--- OUTSIDE RECORDS SUMMARY | 2024-11-10 15:36 | XMS_ITS | Clinical Summary ---
Author Organization [facility] Address [address] [facility], [facility] [address] [place] [address] Phone Care Team Providers Care Photographer Scientific Name Role Phone Darren Ledesma MD Primary Care Provider [phone] Mala Thomas APRN, CONTACT LENS TECHNICIAN Unavailable Theodore Hernandez MD Unavailable Chandan Mcdaniel MD Unavailable Allergies Active Allergy Reactions Criticality Noted Date Comments Clonazepam Other (see Comments) High 03/05/2015 Makes her suicidal Dulaglutide Unknown 11/15/2019 Metformin Other (see Comments) Medium 11/09/2018 Causes ulcers and diarrhea Penicillins Itching Medium 03/05/2015 Prednisone Other (see Comments) High 03/05/2015 Oral makes her suicidal Medications lamoTRIgine (LAMICTAL) 150 MG TabletIndication s:Mood Take by mouth 2 times daily. Indications: Mood Active ARIPiprazole (ABILIFY) 5 MG Tablet every evening. 2 Active Continuous Blood Gluc Psychologist (FluorofinderStyle [place] 2 [place]) Device 1 Device by Other route. 2 Active amLODIPine (NORVASC) 10 MG Tablet Take 0.5 Tablets by mouth 2 times daily. 90 Tablet 1 3 Active aspirin EC 81 MG Tablet Delayed Response Take 81 mg by mouth daily. Active atorvastatin (LIPITOR) 80 MG Tablet Take 80 mg by mouth nightly. 3 Active lisinopril (PRINIVIL, ZESTRIL) 40 MG Tablet Take 40 mg by mouth every evening. Active venlafaxine (EFFEXOR-XR) 75 MG CAPSULE SR 24 HR Take 225 mg by mouth every evening. Active levothyroxine (SYNTHROID) 100 MCG Tablet TAKE 1 TABLET BY MOUTH DAILY 90 Tablet 3 5 Active Topiramate 50 MG Tablet Take 1 Tablet by mouth 2 times daily. 5 Active Insulin Pen Needle (Pen Tiffin) 32G X 4 MM Misc 4 times a day 400 Each 3 5 Active omeprazole (PriLOSEC) 40 MG CAPSULE DELAYED RELEASEIndicatio ns:Gastroesophag eal reflux disease, unspecified whether esophagitis present Take 1 Capsule by mouth daily. 90 Capsule 3 5 Active Blood Glucose Monitoring Suppl (OneTouch Verio) w/Device KitIndications:T ype 2 diabetes mellitus with diabetic polyneuropathy, without long-term current use of insulin 1 Kit by Does not apply route daily. Use to test 2x daily. 1 Kit 5 Active Glucose Blood (OneTouch Verio) StripIndications :Type 2 diabetes mellitus with diabetic polyneuropathy, without long-term current use of insulin USE TO TEST SUGAR TWICE DAILY 200 Strip 3 5 Active OneTouch Delica Lancets 33G [facility] 1 Lancet . by Does not apply route 2 times daily. Test blood glucose 2x daily. 200 Lancet . 3 5 Active Accu-Chek FastClix Lancets Mis 200 lancets by Does not apply route 2 times daily. 200 Lancet . 3 5 Active Blood Glucose Monitoring Suppl (Accu-Chek Guide) w/Device Kit 1 Kit by Does not apply route 2 times daily. 1 Kit 5 Active Glucose Blood (Accu-Chek Guide Test) Strip Test blood glucose 2x daily. 200 Strip 3 5 Active Continuous Glucose Sensor (Dexcom G7 Sensor) Misc Every 10 days 9 Each 1 5 Active insulin regular human, CONCENTRATED, (HumuLIN R U-500 KwikPen) 500 UNIT/ML Solution Pen-injector 140 units at breakfast and 70 units at dinner 45 mL 1 5 Active tiZANidine (ZANAFLEX) 4 MG Tablet TAKE 1 TABLET BY MOUTH THREE TIMES DAILY 90 Tablet 5 Active Active Problems Problem Noted Date Diagnosed Date Diarrhea 06/23/2024 Rash in adult 07/17/2023 Yeast infection 07/17/2023 Rash 03/26/2023 Leg cramps 01/21/2023 Kidney stone 01/21/2023 Pyelonephritis 06/05/2022 Encounter for diabetic foot exam 03/04/2022 Nerve pain 03/04/2022 Diabetic acidosis without coma 10/30/2021 COVID-19 07/22/[address] of the abdomen 05/16/2021 Nausea and vomiting 09/12/2020 Hypothyroidism 07/02/2020 Suicidal ideations 07/02/2020 Depression 07/02/2020 Chronic right shoulder pain 02/23/2020 Fall 02/23/2020 Chronic pain of left knee 02/23/2020 Gastroparesis 02/23/2020 Esophageal thickening 02/22/2020 High blood pressure 06/02/2018 Hepatic steatosis 06/02/2018 Acute gastroenteritis 02/21/2018 Dehydration 02/21/2018 Hypokalemia 02/21/2018 Leukocytosis 02/21/2018 Acquired hypothyroidism 02/21/2018 Chronic narcotic use 09/25/2017 Frequent falls 09/25/2017 Acquired hypothyroidism 07/07/2017 UTI (urinary tract infection) 01/19/2017 Acute pyelonephritis 11/26/2016 Left nephrolithiasis 11/26/2016 Acute unilateral obstructive uropathy 11/26/2016 Hyponatremia 11/26/2016 History of neck surgery 10/16/2016 Elevated hemoglobin A1c 02/29/2016 Chronic pain syndrome 02/29/2016 Acute pancreatitis 12/18/2015 Morbid obesity 12/18/2015 Hypertension 12/18/2015 Nicotine abuse 12/18/2015 Type 2 diabetes mellitus wit h diabetic polyneuropathy, with long-term current use of insulin 07/19/2015 Class 3 severe obesity due t o excess calories with serious comorbidity and body mass index (BMI) of 40.0 to 44.9 in adult 07/19/2015 Gastroesophageal reflux disease 07/19/2015 Vitamin D deficiency 03/05/2015 Diabetes mellitus type 2, uncontrolled 6 B12 deficiency 03/05/2015 Hyperlipidemia 03/05/2015 Resolved Problems Problem Noted Date Diagnosed Date Resolved Date Acute cystitis 01/17/2023 01/17/2023 Obstructive uropathy 01/14/2023 023 DKA (diabetic ketoacidosis) 10/27/2021 10/28/2021 Left ureteral stone 01/18/2017 01/20/20 17 Encounters Date Type Department Care Team Description 11/07/2024 [facility]phone [facility] [place] [address] Darren Ledesma MD 09/27/2024 Refill [facility] [address] [place] [address] Darren Ledesma MD Medication Refill 09/26/2024 1:15 PM CDT [facility] [address] [place] [address] Chandan Mcdaniel MD Type 2 diabetes mellitus with diabetic polyneuropathy, with long-term current use of insulin (HCC) (Primary Dx); Insulin dose changed (HCC); Class 3 severe obesity due to excess calories with serious comorbidity and body mass index (BMI) of 40.0 to 44.9 in adult; Acquired hypothyroidism Discharge Disposition: Discharged to home or Selfcare 09/26/2024 Travel from Last 3 Months Immunizations Immunization Administration Dates Next Due Covid-19, Mrna, Lnp-s, Pf, 3 0 Mcg/0.3 Ml Dose ([employer]) 05/12/2020,04/19/2020 Influenza Vaccine 11/17/2015 Influenza Vaccine, Quadrivalent, PF 02/17,11/27/2016(Deferred: - refused r/t infection and spoke with pharmacy regarding elevated wbc),12/17/2015 Influenza,Split Virus,Trivalent,Injectable,PF 11/25/2023 TDAP Vaccine 12/29/2017 Family History Medical History Relation Name Comments Stroke Brother 1 Stroke Brother 2 Marcus Knott Stroke Diabetes Father Mark Anthony Knott Sr. Insul in dependent Heart Attack Father Mark Anthony Knott Sr. High Cholesterol Father Mar kAnthony Knott Sr. Hypertension Father Mark Anthony Knott Sr. Congestive Heart Failure Mother Homar Lindsey Diabetes Mother Homar Lindsey Insilin dependa nt High Cholesterol Mother Homar Lindsey Hypertension Mother Homar Lindsey Osteoarthritis Mother Homar Lindsey Stroke Mother Homar Lindsey Thyroid Disease Mother Homar Lindsey Relation Name Status Comments Brother 1 Brother 2 Marcus Knott Father Mark Anthony Knott Sr. Alive Mother Homar Lindsey Alive Social History Tobacco Use Types Packs/Day Years Used Date Smoking Tobacco: Former Cigarettes 1 32 0 06/20/1984 - 06/20/2016 Smokeless Tobacco: Never Tobacco Cessation:Counseling Given: Yes Comments:Still Completely Nicotine Free Alcohol Use Standard Drinks/Week Comments Yes 1 (1 standard drink = 0.6 oz pur e alcohol) usually about 2 drinks a year [facility] [employer] Answer Date Recorded In the past 12 months has [employer], gas, oil, or water [employer] threatened to shut off services in your [...] How often do you attend chur or zoroastrian services? Patient declined 03/28/2024 Do you belong to any clubs o r organizations such as religion groups, unions, fraternal or athletic groups, or [...] Recorded Total Score - Questions 1-9 0 05/0 09/2024 [facility] - Occupational Stress Questionnaire Answer Date Recorded [...] place to sleep or slept in a intermediate (including now)? No 05/19/2023 Housing Stability Vital Sign Answer Danny e Recorded In the last 12 months, was t here a time when you were not able to pay the mortgage or rent on time? No 03/28/2024 In the past 12 months, how m any times have you moved where you were living? 0 03/28/2024 At any time in the past 12 m [facility], were you homeless or living in a intermediate (including now)? No 03/28/2024 Education Answer Date Recorded What is the highest level of school you have completed or the highest degree you have received? GED or equivalent Sexually Active Control Partners Comments Yes Post-menopausal, None Male Comments No Sex and Gender Information Value Date Recorded Sex Assigned at Female 03/04/2024 5:39 PM RECEIVING TEAM MEMBER Legal Sex Female 7:42 PM CDT Gender Identity Female 03/04/2024 5:39 PM RECEIVING TEAM MEMBER Sexual Orientation Straight 03/04/2024 5: 39 PM RECEIVING TEAM MEMBER Last Filed Vital Signs Vital Sign Reading Time Taken Comments Blood Pressure 122/64 09/26/2024 1:04 PM CDT Pulse 108 09/26/2024 1:04 PM CDT Temperature 36.2 C (97.2 F) 09/26/2024 1:04 PM CDT Respiratory Rate 22 09/26/2024 1:04 PM CDT Oxygen Saturation 95% 09/26/2024 1:04 PM CDT Inhaled Oxygen Concentration - - Weight 149.8 kg (330 lb 3.2 oz) 09/26/2024 1:04 PM CDT Height 182.9 cm (6') 06/23/2024 11:08 AM CDT Body Mass Index 44.78 06/23/2024 11:08 AM CDT Plan of Treatment Upcoming Encounters Date Type Department Care Team (Late st Contact Info) Description 01/02/2025 11:30 AM RECEIVING TEAM MEMBER Office Visit [facility] - Endocrinology - [place] [address] [place] [address] Chandan Mcdaniel MD [address] [place] [address] [place] [address] 01/02/2025 11:45 AM RECEIVING TEAM MEMBER Procedure Visit [facility] Endocrinology - [place] [address] [place] [address] 01/23/2025 4:00 PM RECEIVING TEAM MEMBER Office Visit [facility] - Family Medicine [facility] [address] [place] [address] Darren Ledesma MD [address] [address] Health Maintenance Due Date Last Done Comments Diabetes: Eye Exam 1972 Diabetes: Foot Exam 1972 Hepatitis B Immunization (1 of 3 - 19+ 3-dose series) 10/19/1991 Pneumococcal Immunization (50+ years) (1 of 2 - PCV) 10/19/1991 Cologuard 2017 Immunochemical Fecal Occult Blood 2017 Mammogram 12/09/2018 12/09/2017 Lung Cancer Screening 2022 Zoster Immunization (1 of 2) 2022 Influenza Immunization (#1) 10/17/202410/2023, 03/07/2020, 12/17/2015, Additional history exists SARS-COV-2 Immunization ( season) 2024 12/24/2022, 03/17/2021, 05/12/2020, Additional history exists Diabetes: Hemoglobin A1c 03/29/2025 025, 06/14/2024, 12/08/2023, Additional history exists Diabetes: Nephropathy Screening 06/23/2025 06/23/2024, 06/21/2024, 09/23/2023, Additional history exists Pap Smear 11/24/2026 11/25/2023, 11/13/2016 Td Immunization Every 10 Years (Adults With 1 Tdap) 12/30/2027 12/29/2017 Cervical Cancer Screening (CCS) 11/24/2028 HPV/Cotest 11/24/2028 11/25/2023 Colonoscopy 02/15/2029 02/15/2019 Colorectal Cancer Screening 02/15/2029 Respiratory Syncytial Virus (RSV) Immunization (Adult) (1 - 1-dose 75+ series) 10/19/2047 Discussion re Starting/Frequency of Mammograms Discontinued 12/09/2017 Hepatitis C Virus (HCV) Screening Completed 01/06/2024 Human Papillomavirus (HPV) Immunization Aged Out No longer eligible based on patient's age to complete this topic Meningococcal Immunization (ACWY) Aged Out No longer eligible based on patient's age to complete this topic Rotavirus Immunization Aged Out No lo nger eligible based on patient's age to complete this topic Goals Goal Patient Goal Type Associated Problems [...] INSULIN - ANALOG PATTERN CONCERN No Darren eLdesma MD Help patient manage nicotine dependency Care Plan MCCP NICOTINE DEPENDENCY CONCERN No Darren Ledesma MD Medical Devices Implanted Type Area Director Business Development Device Identifier Shelf Expiration Date Model / Serial / Lot Stent Ureteral 6fr 2.1fr 28cm 2 Pigtail Curve 2 Durometer Taper Tip Loprfl Graduated Intrinsic-IDis Ultra - [id number] Implanted:Qty : 1 on 01/29/2023 by [facility] IMPLANT Left: Ureter [employer] 10/01/2025 [id number] / [id number] / [id number] Description:STRINGS ON Bard Inlay Ureteral Stent Implanted:Qty : 1 on 01/18/2017 by Faith [facility] MD at [facility] Left: Ureter [employer] 03/12/2021 [id number] / [id number] / [id number] Bard Inlay Ureteral Stent Implanted:Qty : 1 on 02/03/2017 by Faith [facility] MD at [facility] Left: Ureter 06/04/2021 / [id number] / [id number] Explanted Type Area Director Business Development Device Identifier Shelf Expiration Date Model / Serial / Lot Stent Ureteral 6fr 2.1fr 28cm 2 Pigtail Curve 2 Durometer Taper Tip Loprfl Graduated Polaris Ultra - [id number] Implanted:Qty : 1 on 01/15/2023 by Theodore Hernandez MD at [facility] Explanted:Qty : 1 on 01/29/2023 by Theodore Hernandez MD at [facility] IMPLANT Left: Ureter [employer] 09/25/2025 [id number] / [id number] / [id number] Description:STENT INTACT Bard Inlay Ureteral Stent Implanted:Qty : 1 on 11/26/2016 by Faith Ng MD at [facility] Explanted:Qty : 1 on 02/10/2017 at [facility] Left: Ureter [employer] 03/12/2021 [id number] / [id number] / [id number] Procedures Procedure Name Priority Date/Time Associated Diagnosis Comments POCT GLYCOSYLATED HEMOGLOBIN Routine 09/26/2024 1:12 PM CDT Type 2 diabetes mellitus with diabetic polyneuropathy, with long-term current use of insulin (HCC) CMP (COMPREHENSIVE METABOLIC PANEL) Routine 06/23/2024 12:06 PM CDT Diarrhea, unspecified type HEPATITIS C ANTIBODY Routine 01/06/2024 11:16 AM RECEIVING TEAM MEMBER STI (sexually transmitted infection) HUMAN PAPILLOMA VIRUS (HPV) Routine 11/25/2023 11:14 AM CDT Screening for malignant neoplasm of cervix PATHOLOGY CYTOLOGY ROLLER PNEUMATIC Routine 11/25/2023 11:14 AM CDT Screening for malignant neoplasm of cervix GLADIS SCREENING BILATERAL DIGITAL W CAD W MALIKA Routine 12/09/2017 1:50 PM CDT Screening mammogram, encounter for from Last 3 Months or Most Recently Relevant to Health Maintenance Results * (ABNORMAL) POCT GLYCOSYLATED HEMOGLOBIN (09/26/2024 1:12 PM CDT) HGB-A1C 9.2(A) 4 - 6 % Blood 09/26/2024 1:12 PM CDT us Chandan Mcdaniel MD POINT OF CARE TESTING (MANUAL) F inal Result * (ABNORMAL) CMP (COMPREHENSIVE METABOLIC PANEL) (06/23/2024 12:06 PM CDT) SODIUM 139 136 - 145 mmol/L 06/23/2024 1:06 PM CDT [facility] POTASSIUM 3.9 3.5 - 5.1 mmol/L 06/23/2024 1:06 PM CDT [facility] CHLORIDE 109(H) 98 - 107 mmol/L 06/23/2024 1:06 PM CDT [facility] CO2, VENOUS 25 22 - 30 mmol/L 06/23/2024 1:06 PM CDT [facility] ANION GAP 8.9 <18.0 mmol/L 06/23/2024 1:06 PM CDT [facility] GLUCOSE 309(H) 70 - 99 mg/dL 06/23/2024 1:06 PM CDT [facility] BUN 11 10 - 20 mg/dL 06/23/2024 1:06 PM CDT [facility] CREATININE, BLOOD 0.72 0.60 - 1.00 mg/dL 06/23/2024 1:06 PM CDT [facility] BUN/CREATININE RATIO 15 12 - 20 ratio 06/23/2024 1:06 PM CDT [facility] TOTAL PROTEIN 7.1 6.0 - 8.0 g/dL 06/23/2024 1:06 PM CDT [facility] ALBUMIN 3.6 3.5 - 5.0 g/dL 06/23/2024 1:06 PM CDT [facility] A/G RATIO 1.0 1.0 - 2.2 06/23/2024 1:06 PM CDT [facility] CALCIUM 8.6(L) 8.7 - 10.5 mg/dL 06/23/2024 1:06 PM CDT [facility] T BILI 0.3 0.2 - 1.2 mg/dL 06/23/2024 1:06 PM CDT [facility] SGOT (AST) 44(H) <43 U/L 06/23/2024 1:06 PM CDT [facility] SGPT (ALT) 56(H) <56 U/L 06/23/2024 1:06 PM CDT [facility] ALKALINE PHOSPHATASE 124 40 - 150 U/L 06/23/2024 1:06 PM CDT [facility] IS THE PATIENT REQUIRED TO BE FASTING? No 06/23/2024 1:06 PM CDT [facility] GFR, ESTIMATED >60 >=60 06/23/2024 1:06 PM CDT [facility] Comment: Creatinine Clearance is the preferred criteria for selecting drug dose adjustments in renally impaired patients. The GFR is provided as additional pertinent clinical information. GFR is reported in mL/min/1.73 sq m. Calculation based on the Chronic Kidney Disease Epidemiology Collaboration (CKD- EPI) equation refit without adjustment for race. GFR, EST. >60 >=60 025 1:06 PM CDT [facility] GFR, EST. NONAFRICAN >60 >=60 06/23/2024 1:06 PM CDT [facility] Blood Venipuncture / Unknown 06/23/2024 12:06 PM CDT 06/23/2024 12:29 PM CDT Darren Ledesma MD CHEMISTRY ORDERABLES Reshma rangel Result [facility] [address] [place] [address] * HEPATITIS C ANTIBODY (01/06/2024 11:16 AM RECEIVING TEAM MEMBER) hepatitis C antibody 0.15 <1 S/CO 01/06/2024 10:11 PM RECEIVING TEAM MEMBER [facility] Comment: Signal/Cutoff ratio < 0.79 is Nondetected Signal/Cutoff ratio 0.80-0.99 is Grayzone Signal/Cutoff ratio > 0.99 is Detected Supplemental assays are recommended if signal/cutoff ratio is >/=1.00. Signal/cutoff ratio result >/= 5.00 is 97% predictive of positivity for recombinant immunoblot assay (RIBA) and will be reported to the [place] Department of Public Health as required. Blood Venipuncture / Unknown 01/06/2024 11:16 AM RECEIVING TEAM MEMBER 01/06/2024 12:14 PM RECEIVING TEAM MEMBER us Shelley Joseph APRN, CONTACT LENS TECHNICIAN CHEMISTRY ORDERABLES Fin al Result [facility] [address] [place] [address], * PATHOLOGY CYTOLOGY ROLLER PNEUMATIC (11/25/2023 11:14 AM CDT) SPECIMEN ADEQUACY Satisfactory for evaluation. Endocervical/transf ormation zone component is absent. 12/03/2023 2:18 PM CDT [facility] DESCRIPTIVE DIAGNOSIS NEGATIVE FOR INTRAEPITHELIAL LESIONS OR MALIGNANCY. 12/03/2023 2:18 PM CDT [facility] at 1418 CDT Automated Examination Analysis of this sample has been assisted by an automated imaging and review system (Mobile [employer] Imaging System, [employer], [place], [place]). This case is further evaluated and finalized by a collection clerk and/or pathologist. 12/03/2023 2:18 PM CDT [facility] Disclaimer The PAP smear is a screening test designed to detect cancerous or precancerous cells of the uterine cervix. It is one of the best means available for detection of cervical cancer but still carries an inherent false-negative rate. The consequences of a false-negative PAP result can be minimized by adhering to current screening guidelines. The following are general guidelines recommended by the ACS, ASCP, ASCCP, and ACOG: PAP testing is recommended every three years for women 21-29, Co-Testing, a PAP test in conjunction with an HPV (Human Papillomavirus) test for women ages 30-65, and no PAP or HPV testing for women under the age of 21 or older than 65 unless clinically indicated. 12/03/2023 2:18 PM CDT [facility] Case Report Gynecologic Cytology Report Case: [id number] Authorizing Provider: Shelley Joseph APRN, CNP Collected: 11/25/2023 11:14 AM Ordering Location: [facility] - Family Received: 11/25/2023 11:14 AM Medicine - Vlad First Screen: Bola Hemphill Specimen: TP Screen, Cervix/Endocervix 12/03/2023 2:18 PM CDT [facility] Other CERVIX UTERI STRUCTURE / Unknown Non-Phlebotomy Collection / Unknown 11/25/2023 11:14 AM CDT 11/25/2023 11:14 AM CDT us Shelley Joseph APRN, CNP PATHOLOGY/CYTOLOGY ORDER SUJATHA Final Result [facility] [address] [id number], * HUMAN PAPILLOMA VIRUS (HPV) (11/25/2023 11:14 AM CDT) HPV TYPE 16 NEGATIVE NEGATIVE 11/26/2023 3:01 PM CDT [facility] Comment: A negative high-risk HPV result does not exclude the possibility of future cytologic HSIL or underlying CIN2-3 or cancer. The presence of PCR inhibitors may cause false negative or invalid results. If concentrations of whole blood in the sample exceed 10% (dark red or brown coloration) in PreservCyt solution, there is a likelihood of obtaining a false-negative result. HPV TYPE 18 NEGATIVE NEGATIVE 11/26/2023 3:01 PM CDT [facility] Comment: A negative high-risk HPV result does not exclude the possibility of future cytologic HSIL or underlying CIN2-3 or cancer. The presence of PCR inhibitors may cause false negative or invalid results. If concentrations of whole blood in the sample exceed 10% (dark red or brown coloration) in PreservCyt solution, there is a likelihood of obtaining a false-negative result. HPV OTHER HIGH RISK TYPES, PCR NEGATIVE NEGATIVE 11/26/2023 3:01 PM CDT [facility] Comment: The following Other High Risk types were not detected: 31, 33, 35, 39, 45, 51, 52, 56, 58, 59, 66, and 68. A negative high-risk HPV result does not exclude the possibility of future cytologic HSIL or underlying CIN2-3 or cancer. The presence of PCR inhibitors may cause false negative or invalid results. If concentrations of whole blood in the sample exceed 10% (dark red or brown coloration) in PreservCyt solution, there is a likelihood of obtaining a false-negative result. HPV ORDER BE USED FOR SCREENING OR DIAGNOSTIC SCREENING 11/26/2023 3:01 PM CDT [facility] Other Non-Phlebotomy Collection / Unknown 11/25/2023 11:14 AM CDT 11/25/2023 11:14 AM CDT Narrative [facility] - 11/26/2023 3:01 PM CDT This test was performed using [employer] 5800 Real Time PCR. us Shelley Joseph ROAD GRADER OPERATOR, CONTACT LENS TECHNICIAN LAB SEND OUTS Final Re sult [facility] [address] [place] [address], [facility] [address] [place] [address] * GLADIS SCREENING BILATERAL DIGITAL W CAD W MALIKA (12/09/2017 1:50 PM CDT) Anatomical Region Laterality Modality breast Bilateral Mammography 12/09/2017 1:15 PM CDT Narrative 12/09/2017 2:44 PM CDT - GLADIS SCREENING BILATERAL DIGITAL W CAD W MALIKA BILATERAL DIGITAL SCREENING MAMMOGRAM 3D/2D WITH CAD WITH MEDIOLATERAL OBLIQUE CRANIOCAUDAL: 12/09/2017 The study was acquired using digital technology and interpreted from soft copy. Current study was also evaluated with ICAD version 7.2. CLINICAL: Routine screening. Patient's exam performed in a chair due to patient's physical condition. She has had 4 recent back surgeries and is limited with her range of motion. Additional images taken in effort to obtain more adequate breast tissue. Patient has no complaints. No personal history of cancer. No family history of breast cancer. COMPARISONS: Comparison is made to exam dated: 05/29/2014 [facility]. BREAST TISSUE:There are scattered fibroglandular densities in both breasts. FINDINGS: There are benign calcifications in both breasts. No significant masses, calcifications, or other findings are seen in either breast. There has been no significant interval change. IMPRESSION: BI-RAD 2 BENIGN There is no mammographic evidence of malignancy. A 1 year screening mammogram is recommended. The patient has been or will be contacted. The patient will be entered into a reminder system with a target due date of 1 year for her next screening exam. Electronically signed by: Rosaline mejia/robert:12/09/2017 14:24:57 Creative Services Coordinator: Elisa Carr (R), [facility] letter sent: Normal Exam Reading location: [facility] BI-RADS: 2 Benign Procedure Note Rosaline Yoo MD - 12/09/2017 - GLADIS SCREENING BILATERAL DIGITAL W CAD W MALIKA BILATERAL DIGITAL SCREENING MAMMOGRAM 3D/2D WITH CAD WITH MEDIOLATERAL OBLIQUE CRANIOCAUDAL: 12/09/2017 The study was acquired using digital technology and interpreted from soft copy. Current study was also evaluated with ICAD version 7.2. CLINICAL: Routine screening. Patient's exam performed in a chair due to patient's physical condition. She has had 4 recent back surgeries and is limited with her range of motion. Additional images taken in effort to obtain more adequate breast tissue. Patient has no complaints. No personal history of cancer. No family history of breast cancer. COMPARISONS: Comparison is made to exam dated: 05/29/2014 [facility]. BREAST TISSUE:There are scattered fibroglandular densities in both breasts. FINDINGS: There are benign calcifications in both breasts. No significant masses, calcifications, or other findings are seen in either breast. There has been no significant interval change. IMPRESSION: BI-RAD 2 BENIGN There is no mammographic evidence of malignancy. A 1 year screening mammogram is recommended. The patient has been or will be contacted. The patient will be entered into a reminder system with a target due date of 1 year for her next screening exam. Electronically signed by: Rosaline mejia/robert:12/09/2017 14:24:57 Creative Services Coordinator: Elisa Carr (R), [facility] letter sent: Normal Exam Reading location: [place] BI-RADS: 2 Benign Garcia Engel MD IMG MAMMO ORDERABLES Final Result from Last 3 Months or Most Recently Relevant to Health Maintenance Additional Health Concerns Active Problems Noted Date Diagnosed Date [facility] HYPERTENSION CONCERN (P ATIENT ON HIGH BLOOD PRESSURE MEDICATIONS) 01/21/2023 [facility] NICOTINE DEPENDENCY CONCERN 01/21/2023 [facility] TYPE 2 DIABETES CONCERN 01/21/2023 [facility] TYPE 2 DIABETES INSULIN - ANALOG PATTERN CO NCERN 01/21/2023 [facility] NICOTINE DEPENDENCY CONCERN 01/21/2023 Insurance [address] [phone] Advance Directives * Full Code (Latest Code Status on File) Date Activated Date Inactivated Comments 01/14/2023 8:08 PM 01/17/2023 1:56 PM CPR-Full Tr eatment: FULL ARREST: Attempt Resuscitation/CPR wit intubation and mechanical ventilation. PRE-ARREST: Use entire range of life support measures to stabilize the patient. * Full Code Date Activated Date Inactivated Comments 10/27/2021 10:19 PM 10/28/2021 5:58 PM CPR-Full Tr eatment: FULL ARREST: Attempt Resuscitation/CPR wit intubation and mechanical ventilation. PRE-ARREST: Use entire range of life support measures to stabilize the patient. * Full Code Date Activated Date Inactivated Comments 02/21/2018 4:42 PM 02/21/2018 7:00 PM CPR-Full Treat ment: FULL ARREST: Attempt Resuscitation/CPR wit intubation and mechanical ventilation. PRE-ARREST: Use entire range of life support measures to stabilize the patient. * Full Code Date Activated Date Inactivated Comments 11/05/2017 11:41 AM 11/16/2017 6:00 PM * Full Code Date Activated Date Inactivated Comments 01/17/2017 6:11 PM 01/19/2017 2:09 PM CPR-Full Rick atment: FULL ARREST: Attempt Resuscitation/CPR wit intubation and mechanical ventilation. PRE-ARREST: Use entire range of life support measures to stabilize the patient. Care Teams Photographer Scientific Relationship Specialty Start Date End Date Darren Ledesma MD #2 [facility] [address] [place] [address] PCP - General Family Medicine 12/29/14 Mala Thomas, ROAD GRADER OPERATOR, CONTACT LENS TECHNICIAN #2 [facility] [address] [place] [address] Nurse Practitioner Advanced Practice Nurse 01/09/16 Theodore Hernandez MD #2 [facility] [address] [place] [address] Consulting Physician Urology 02/08/24 Chandan Mcdaniel MD #2 [facility] [address] [place] [phone] Consulting Physician Endocrinology 06/10/24
--- OUTSIDE RECORDS SUMMARY | 2024-11-10 15:36 | XMS_ITS | Encounter Summary ---
Author Organization [facility] Address [address] [place] [address] Phone Care Team Providers Care Fish Cutting Machine Operator Name Role Phone Darren Ledesma MD Primary Care Provider [phone] Mala Thomas APRN, PROGRAM COUNSELOR Unavailable Theodore Hernandez MD Unavailable Chandan Mcdaniel MD Unavailable Reason for Visit * Reason Comments Medication Refill Encounter Details Date Type Department Care Team (Late st Contact Info) Description 02/28/2021 Refill [facility] - Family Medicine [facility] #2 [place] [address] Darren Ledesma MD #[address] [address] Medication Refill Social History Tobacco Use Types [...] Sex Assigned at Female 03/04/2024 5:39 PM CHIEF LOCK TENDER OPERATOR Legal Sex Female 7:42 PM CDT Gender Identity Female 03/04/2024 5:39 PM CHIEF LOCK TENDER OPERATOR Sexual Orientation Straight 03/04/2024 5: 39 PM CHIEF LOCK TENDER OPERATOR documented as of this encounter Miscellaneous Notes * Telephone Encounter - Hina James RN - 03/01/2021 11:34 AM CST Medication failed the protocol, provider to review and approve the medication order if appropriate. Requested Prescriptions Pending Prescriptions Disp Refills tiZANidine (ZANAFLEX) 4 MG Tablet [Pharmacy Med Name: TIZANIDINE 4MG TABLETS] 60 Tablet 2 Sig: TAKE 1 TABLET BY MOUTH TWICE DAILY Not Delegated - Muscle Relaxants Protocol Failed - 02/28/2021 5:32 PM Failed - This refill cannot be delegated Passed - Visit with relevant provider in past 12 months or upcoming 90 days Recent Visits Date Type Provider Dept 09/24/20 Office Visit Gianluca Bagley APRN, CNP [facility] 09/12/20 Telemedicine Darren Ledesma MD [facility] 08/17/20 Telemedicine Gianluca Bagley APRN, CNP [facility] 07/02/20 Office Visit Darren Ledesma MD [facility] 03/07/20 Office Visit Gianluc[facility] Bag[facility] Showing recent visits within past 365 days [...] Range Status 09/22/2020 17 <=41 U/L Final F LOCK TENDER OPERATOR documented in this encounter Plan of Treatment Upcoming Encounters Date Type Department Care Team (Late st Contact Info) Description 01/02/2025 11:30 AM CHIEF LOCK TENDER OPERATOR Office Visit [facility] Endocrinology - [place] [address] [facility] [place] [address] Chandan Mcdaniel MD #2 [facility] [address] [place] [address] 01/02/2025 11:45 AM CHIEF LOCK TENDER OPERATOR Procedure Visit [facility] Endocrinology - [place] #2 [facility] [address] 01/23/2025 4:00 PM CHIEF LOCK TENDER OPERATOR Office Visit [facility] #2 [place] [address] Darren Ledesma MD #2 [facility] [address] [place] [address] documented as of this encounter Visit Diagnoses Diagnosis Chronic pain syndrome documented in this encounter Additional Health Concerns Infection Onset Date Last Indicated Resolved Time COVID - 19 06/13/2021 06/13/2021 07/03/2021 12:1 6 AM CDT C. difficile Rule-Out 06/03/2022 06/04/20222022 2:58 AM CDT COVID - 19 01/14/2023 01/14/2023 01/15/2023 3:13 PM CHIEF LOCK TENDER OPERATOR Assessment Noted Time PHQ-9 Depression Total Score: 1 02/05/20 18 8:34 AM CHIEF LOCK TENDER OPERATOR documented as of this encounter Care Teams Fish Cutting Machine Operator Relationship Specialty Start Date End Date Darren Ledesma MD #2 [facility] [address] [place] [address] PCP - General Family Medicine 12/29/14 Mala Thomas, PLASTIC WORKER, PROGRAM COUNSELOR #2 [facility] [address] [place] [address] Nurse Practitioner Advanced Practice Nurse 01/09/16 Theodore Hernandez MD #2 [facility] [address] [place] [address] Consulting Physician Urology 02/08/24 Chandan Mcdaniel MD #2 [facility] [address] [place] [address] Consulting Physician Endocrinology 06/10/24 documented as of this encounter
--- OUTSIDE RECORDS SUMMARY | 2024-11-10 15:36 | XMS_ITS | Encounter Summary ---
Author Organization [facility] Address [address] [address] Care Team Providers Care Gripper Installer Name Role Phone Kobi Lake DO Unavailable [phone] Darren Ledesma MD Primary Care Provider [phone] Encounter Details Date Type Department Care Team (Late st Contact Info) Description 04/12/2019 [facility] Outpatient Visit [facility] Orthopedics - Radiology [address] [place] [address] [place] [address] Document, Scanned Social History Tobacco Use Types [...] on filedocumented in this encounter Care Teams Gripper Installer Relationship Specialty Start Date End Date Darren Ledesma MD PCP - General Family Medicine 10/31/14 Kobi Lake DO Orthopedic Surgery 02/17/14 documented as of this encounter
--- OUTSIDE RECORDS SUMMARY | 2024-11-10 15:36 | XMS_ITS | Encounter Summary ---
Author Organization [facility] Address [address] [place] [address] Care Team Providers Care Lean Coach Name Role Phone Kobi Lake DO Unavailable [phone] Darren Ledesma MD Primary Care Provider [phone] Encounter Details Date Type Department Care Team (Late st Contact Info) Description 03/14/2020 [facility] Outpatient Visit [facility] Orthopedics - Radiology [address] [place] [address] [place] [address] Document, Scanned Social History Tobacco Use Types [...] of Assessment Author No 06/14/2018 2:28 PM Nesha Mann RN * Does person have difficulty doing [...] on filedocumented in this encounter Care Teams Lean Coach Relationship Specialty Start Date End Date Darren Ledesma MD PCP - General Family Medicine 10/31/14 Kobi Lake DO Orthopedic Surgery 02/17/14 documented as of this encounter
--- OUTSIDE RECORDS SUMMARY | 2024-11-10 15:36 | XMS_ITS | Encounter Summary ---
Author Organization [facility] Address [address] [place] [address] Phone Care Team Providers Care Parts Clerk Plant Maintenance Name Role Phone Darren Ledesma MD Primary Care Provider [phone] Mala Thomas APRN, RESEARCH COORDINATOR Unavailable Theodore Hernandez MD Unavailable Chandan Mcdaniel MD Unavailable Reason for Visit * Reason Comments Medication Refill Encounter Details Date Type Department Care Team (Late st Contact Info) Description 03/11/2023 Refill [facility] - Family Medicine - [place] #2 [place] [phone] Darren Ledesma MD #[address] [address] Medication Refill Social History Tobacco Use Types [...] Sex Assigned at Female 03/04/2024 5:39 PM WEDDING PLANNER Legal Sex Female 7:42 PM CDT Gender Identity Female 03/04/2024 5:39 PM WEDDING PLANNER Sexual Orientation Straight 03/04/2024 5: 39 PM WEDDING PLANNER documented as of this encounter Miscellaneous Notes * Telephone Encounter - Hina James RN - 03/12/2023 7:56 AM CST Medication failed the protocol, provider to review and approve the medication order if appropriate. Requested Prescriptions Pending Prescriptions Disp Refills omeprazole (PriLOSEC) 40 MG CAPSULE DELAYED RELEASE [Pharmacy Med Name: OMEPRAZOLE 40MG CAPSULES] 90 Capsule 1 Sig: Take 1 Capsule by mouth daily. Proton Pump Inhibitors Protocol Passed - 03/11/2023 7:01 PM Passed - No positive test in [...] on record tiZANidine (ZANAFLEX) 4 MG Tablet [Pharmacy Med Name: TIZANIDINE 4MG TABLETS] 90 Tablet 0 Sig: TAKE 1 TABLET BY MOUTH THREE TIMES DAILY Not Delegated - Muscle Relaxants Protocol Failed - 03/11/2023 7:01 PM Failed - This refill cannot be delegated Passed - Visit with relevant provider in past 12 months or upcoming 90 days Recent Visits Date Type Provider Dept 01/21/23 Telemedicine Darren Ledesma MD [facility] 06/05/22 Telemedicine Darren Ledesma MD [facility] 05/21/22 Office Visit Darren Ledesma MD [facility] Showing recent visits within past 365 days [...] 01/14/2023 26 0 - 55 U/L Final ING PLANNER documented in this encounter Plan of Treatment Upcoming Encounters Date Type Department Care Team (Late st Contact Info) Description 01/02/2025 11:30 AM WEDDING PLANNER Office Visit [facility] Endocrinology - [place] #2 [place] [address] Chandan Mcdaniel MD #[address] [place] [address] 01/02/2025 11:45 AM WEDDING PLANNER Procedure Visit [facility] Endocrinology - [place] #2 [place] [address] 01/23/2025 4:00 PM WEDDING PLANNER Office Visit [facility] Family Medicine - [place] #2 [facility] [place] [address] Darren Ledesma MD #[address] [place] [address] documented as of this encounter Goals Goal [...] documented as of this encounter Care Teams Parts Clerk Plant Maintenance Relationship Specialty Start Date End Date Darren Ledesma MD #2 [facility] [address] [place] [address] PCP - General Family Medicine 12/29/14 Mala Thomas APRN, RESEARCH COORDINATOR #2 [facility] [address] [place] [address] Nurse Practitioner Advanced Practice Nurse 01/09/16 Theodore Hernandez MD #2 [facility] [address] [place] [address] Consulting Physician Urology 02/08/24 Chandan Mcdaniel MD #2 [facility] [address] [place] [address] Consulting Physician Endocrinology 06/10/24 documented as of this encounter
--- OUTSIDE RECORDS SUMMARY | 2024-11-10 15:36 | XMS_ITS | Encounter Summary ---
Author Organization [facility] Address [address] [place] [address] Phone Care Team Providers Care Event Designer Name Role Phone Darren Ledesma MD Primary Care Provider [phone] Mala Thomas APRN, PSYCHOLOGICAL ASSISTANT Unavailable Theodore Hernandez MD Unavailable Chandan Mcdaniel MD Unavailable Encounter Details Date Type Department Care Team (Late st Contact Info) Description 11/07/2024 Telephone [facility] - Family [facility] #2 [place] [address] Darren Ledesma MD #[address] [address] Social History Tobacco Use Types Packs/Day Years Used Date Smoking Tobacco: Former Cigarettes 1 32 0 06/20/1984 - 06/20/2016 Smokeless Tobacco: Never Comments:Still Completely Ni cotine Free Alcohol Use Standard Drinks/Week Comments Yes 1 (1 standard drink = 0.6 oz pur e alcohol) usually about 2 drinks a year [facility] Utilities Answer Date Recorded In the past 12 months has th e electric, gas, oil, or water [employer] threatened to shut off services in your [...] How often do you attend chur or yarsani services? Patient declined 03/28/2024 Do you belong to any clubs o r organizations such as bahai groups, unions, fraternal or athletic groups, or [...] Score - Questions 1-9 0 05/0 09/2024 [facility] - [...] place to sleep or slept in a longterm (including now)? No 05/19/2023 Housing Stability Vital Sign Answer Danny e Recorded In the last 12 months, was t here a time when you were not able to pay the mortgage or rent on time? No 03/28/2024 In the past 12 months, how m any times have you moved where you were living? 0 03/28/2024 At any time in the past 12 m [facility], were you homeless or living in a longterm (including now)? No 03/28/2024 Education Answer Date Recorded What is the highest level of school you have completed or the highest degree you have received? GED or equivalent Sexually Active Control Partners Comments Yes Post-menopausal, None Male Comments No Sex and Gender Information Value Date Recorded Sex Assigned at Female 03/04/2024 5:39 PM POTATO SORTER Legal Sex Female 7:42 PM CDT Gender Identity Female 03/04/2024 5:39 PM POTATO SORTER Sexual Orientation Straight 03/04/2024 5: 39 PM POTATO SORTER documented as of this encounter Miscellaneous Notes * Telephone Encounter - Darren Ledesma MD - 11/09/2024 11:52 PM CDT Thanks! * Telephone Encounter - Darren Ledesma MD - 11/07/2024 11:09 AM CDT Reschedule her to see me since she no-showed today. Thanks! documented in this encounter Plan of Treatment Upcoming Encounters Date Type Department Care Team (Late st Contact Info) Description 01/02/2025 11:30 AM POTATO SORTER Office Visit [facility] - Endocrinology - [place] #2 [facility] [place] [address] Chandan Mcdaniel MD #[address] [address] 01/02/2025 11:45 AM POTATO SORTER [facility] [place] #2 [facility] [place] [address] 01/23/2025 4:00 PM POTATO SORTER Office Visit [facility] - Family Medicine - [place] #2 [facility] [place] [address] Darren Ledesma MD #[address] [address] documented as of this encounter Goals Goal [...] Noted Time PHQ-9 Depression Total Score: 0 06/24/19 11:12 AM CDT documented as of this encounter Care Teams Event Designer Relationship Specialty Start Date End Date Darren Ledesma MD #2 [facility] [address] [place] [address] PCP - General Family Medicine 12/29/14 Mala Thomas APRN, PSYCHOLOGICAL ASSISTANT #2 [facility] [address] [place] [address] Nurse Practitioner Advanced Practice Nurse 01/09/16 Theodore Hernandez MD #2 [facility] [address] [place] [address] Consulting Physician Urology 02/08/24 Chandan Mcdaniel MD #2 [facility] [address] [place] [address] Consulting Physician Endocrinology 06/10/24 documented as of this encounter
== END 2024-11-10 14:42 | disposition home or self-care (01) ==
PROVIDERS: Emergency Provider Registered Nurse; PCP Family Medicine
DX: S63.501A Unspecified sprain of right wrist, initial encounter (principal); S66.911A Strain of unspecified muscle, fascia and tendon at wrist and hand level, right hand, initial encounter; I10 Essential (primary) hypertension; E11.9 Type 2 diabetes mellitus without complications; Z79.899 Other long term (current) drug therapy; Z87.891 Personal history of nicotine dependence; V44.5XXA Car driver injured in collision with heavy transport vehicle or bus in traffic accident, initial encounter; Y92.520 Airport as the place of occurrence of the external cause
CPT/HCPCS: 73110; 99213; G0463